=== PATIENT | male | born 1935 | race Two or more races ===

== ENCOUNTER 2016-02-26 11:10 | Inpatient (IN) | payer BC ==
[~2016-02-26] VITALS: Ht 170.2 cm; Wt 88.4 kg
[~2016-02-26 11:10] MED LIST: AMLO-145 PO; ATOR20TA65 PO; CEPH500C PO; CYAN100 PO; ERGO500014 PO; FAMO20TA18 PO; FINA5TAB4 PO; FOLI-49 PO; LISI40TA9 PO; LOSA100T7 PO; RIVA20TA PO; TAMS0.4C2 PO
[2016-02-26 11:16] VITALS: Ht 170.2 cm; Wt 88.4 kg
--- NOTE | 2016-02-26 11:34 | RADRPT ---
PROCEDURE: CT Head without. CLINICAL INDICATION: Code stroke. TECHNIQUE: The study was performed utilizing a multi-slice, multidetector CT scanner. Direct spira l 1 mm axial sections were obtained through the head without the use of intravenous contrast materia l. Coronal and sagittal reformats were obtained. The images were reviewed on a PACS workstation. RADIATION DOSE: CTDIvol: 44.3 mGyDLP: 720.2 mGy-cm COMPARISON: 11/30/2015, MRI brain 12/01/2015 FINDINGS: There is no intracranial hemorrhage, extra-axial fluid collection, mass lesion, midline shift or hyd rocephalus. There is redemonstration of remote prior right MCA distribution infarct, with extensive encephalomalacia involving the right anterior temporal lobe, posterior temporal lobe, right sub ins ular white matter, and right paramedian occipital lobe and right parietal lobe. There is stable adj acent gliosis in the underlying white matter. There is moderate prominence of the cerebral sulci, l ateral and third ventricles. There is baseline of mild to moderate periventricular and subcortical white matter hypodensity. There is moderate arteriosclerotic calcification of the bilateral vertebr al and parasellar internal carotid arteries. The benson-white matter differentiation is preserved. T he basal cisterns are patent. The midline structures are intact. The orbits, calvarium and extracr anial soft tissues are normal in appearance. The visualized paranasal sinuses, mastoid air cells and middle ear cavities are normally aerated. IMPRESSION: 1. No significant interval change compared to 11/30/2015. No acute intracranial abnormality. No i ntracranial hemorrhage, extra-axial fluid collection, mass lesion or hydrocephalous. 2. Stable appearance of sequelae of remote right MCA distribution infarct with encephalomalacia and gliosis in the underlying white matter. 3. Stable moderate peripheral and central cerebral volume loss. 4. Stable mild to moderate periventricular and subcortical white matter hypodensity, likely related to chronic microangiopathic changes. The above findings were discussed with Patient's physician HUMZA LEDEZMA by telephone on 7 11:32:04 AM. RPTAT: DD .Avery Mckeon MD, Date Time Electronically viewed and signed by .Avery Mckeon MD, MD on 02/26/2016 11:33 .S/
[2016-02-26 11:37] LABS: BASOPHIL # 0.1 10^3/ul (0.0-0.1); BASOPHILS % 0.8 % (0.0-2.0); EOSINOPHILS # 0.2 10^3/ul (0.0-0.5); EOSINOPHILS % 3.1 % (0.0-7.0); HEMATOCRIT 33.9 % (42.0-52.0); HEMOGLOBIN 11.1 g/dl (14.0-18.0); LYMPHOCYTES % 13.2 % (15.0-51.0); MEAN CORPUSCULAR HEMOGLOBIN 31.3 pg (29.0-33.0); MEAN CORPUSCULAR HGB CONC 32.8 g/dl (32.0-37.0); MEAN CORPUSCULAR VOLUME 95.4 fl (82.0-101.0); MEAN PLATELET VOLUME 8.6 fl (7.4-10.4); MONOCYTE # 0.4 10^3/ul (0.3-0.9); MONOCYTES % 5.3 % (0.0-11.0); NEUTROPHIL # 5.7 10^3/ul (1.6-7.5); NEUTROPHILS % 77.6 % (39.0-77.0); PLATELET COUNT 234 10^3/UL (140-440); RED BLOOD COUNT 3.55 10^6/ul (4.70-6.10); RED CELL DISTRIBUTION WIDTH 14.1 % (11.5-14.5); UNCORRECTED WBC 7.4 10^3/ul (4.8-10.8); WHITE BLOOD COUNT 7.4 10^3/ul (4.8-10.8)
[2016-02-26 11:42] LABS: CONDITION 1; LH ANALYZER COMMENTS 1; SUSPECT 1
[2016-02-26 11:50] LABS: ALBUMIN 3.3 g/dl (3.3-4.9); INR 4.49; PROTIME 43.5 Sec (12.2-14.2); PT RATIO 3.4
[2016-02-26 11:51] LABS: PARTIAL THROMBOPLASTIN TIME 57.6 Sec (25.0-35.0); POTASSIUM 4.1 mmol/L (3.5-5.1)
[2016-02-26 11:53] LABS: ALBUMIN/GLOBULIN RATIO 1.03; BILIRUBIN,INDIRECT 0.3 mg/dl (0-1.1); BILIRUBIN,TOTAL 0.3 mg/dl (0.2-1.3); CREATININE 1.08 mg/dl (0.61-1.24); TOTAL PROTEIN 6.5 g/dl (6.1-8.1)
[2016-02-26 11:54] LABS: CALCIUM 8.8 mg/dl (8.4-10.2)
[2016-02-26] MEDS ORDERED: APR50 PO (11:58)
[2016-02-26] MEDS ORDERED: DILT120C79 PO (11:58)
[2016-02-26] MEDS ORDERED: CLON-379 PO (11:59)
[2016-02-26] MEDS ORDERED: ZOLP5TAB6 PO (12:00)
[2016-02-26] MEDS ORDERED: LOSA1TAB20 PO (12:00)
[2016-02-26] MEDS ORDERED: HYDR-906 PO (12:01)
--- NOTE | 2016-02-26 12:03 | RADRPT ---
PROCEDURE: Chest Radiograph. CLINICAL INDICATION: Stroke TECHNIQUE: Single frontal chest radiograph. COMPARISON: Chest radiograph 11/30/2015 FINDINGS: The heart remains moderate to markedly enlarged. Atherosclerotic calcifications are present. There is stable mild central vascular congestion. No confluent or lobar infiltrate is seen. No definite pleural effusion is identified. The bones are intact. IMPRESSION: 1. Stable radiographic appearance of chest compared to 11/30/2015 without evidence of acute cardiop ulmonary disease. 2. Stable cardiomegaly, central vascular congestion, and atherosclerotic vascular disease. RPTAT: KK .Jose Elias Mo MD, MD Date Time Electronically viewed and signed by .Jose Elias Mo MD, MD on 02/26/2016 12:03 .B/
[2016-02-26 12:05] LABS: TROPONIN-I 0.027 ng/ml (0.00-0.12)
[2016-02-26 12:39] LABS: CK-MB 1.26 ng/ml (0.0-2.4)
--- NOTE | 2016-02-26 13:32 | ERA ---
ER Documentation Chief Complaint Date/Time DATE: 02/26/16 TIME: 13:22 Chief Complaint BIB RA FOR EVAL OF LEFT SIDED WEAKNESS X 1 DAY. HPI This is an 80-year-old male with a known past medical history of atrial fibrillation that began diltiazem 24 hours ago and has been on xarelto for many years. The patient's utility bill collection clerk is Dr. Capellan. Yesterday evening, the last known normal time of 12 hours prior to arrival, the daughter indicated the patient developed a left-sided facial droop with some slurred speech. This resolved within several minutes and therefore she did not bring the patient to the hospital that time. He had recurrence of this left-sided facial droop just prior to arrival and therefore she phoned 911. The patient denies a headache or changes in vision. He denies any nausea vomiting or abdominal pain. He denies any weakness of his upper or lower extremities. The patient has a remote ischemic cerebral infarct but had no residual weakness from his prior stroke several years ago. ROS All systems reviewed and are negative except as per history of present illness. Medications Home Meds Active Scripts Atorvastatin Calcium (Atorvastatin Calcium) 20 Mg Tablet, 20 MG PO HS for 30 Days, TAB Prov:NEPTALI LOYABIR 12/02/15 Reported Medications Hydrocodone/Acetaminophen ([place] 5-325 Tablet) 1 Each Tablet, 1 EACH PO Q6 Y for PAIN, TAB 02/26/16 Zolpidem Tartrate* (Zolpidem Tartrate*) 5 Mg Tablet, 5 MG PO QHS Y for INSOMNIA , #30 TAB 02/26/16 Losartan-Hydrochlorothiazide (Losartan-HCTZ) 100-25 Mg Tab, 1 TAB PO DAILY, TAB 02/26/16 Clonidine Hcl* (Clonidine Hcl*) 0.1 Mg Tab, 0.1 MG PO Q8 Y for ELEVATED BLOOD PRESSURE, TAB 02/26/16 Hydralazine Hcl* (Hydralazine Hcl*) 50 Mg Tab, 50 MG PO BID, #120 TAB 02/26/16 Diltiazem Hcl* (Diltiazem XT) 120 Mg Capsule.sa, 120 MG PO BID, #30 CAP 02/26/16 Rivaroxaban* (Xarelto*) 20 Mg Tablet, 20 MG PO WITH DINNER, TAB 11/30/15 Tamsulosin Hcl* (Tamsulosin Hcl*) 0.4 Mg Cap.er.24h, 0.4 MG PO DAILY, CAP 11/30/15 Finasteride* (Finasteride*) 5 Mg Tablet, 5 MG PO DAILY, TAB 11/30/15 Discontinued Reported Medications Cephalexin* (Cephalexin*) 500 Mg Capsule, 500 MG PO DAILY, #28 CAP 11/30/15 Folic Acid* (Folic Acid*) 1 Mg Tablet, 1 MG PO DAILY, TAB 11/30/15 Ergocalciferol* (Drisdol* (Vitamin D2)) 50,000 Unit Capsule, 43718 UNIT PO [id number], CAP patient takes med every 2 weeks on Friday11/30/15 Losartan Potassium* (Losartan Potassium*) 100 Mg Tablet, 100 MG PO DAILY, TAB 11/30/15 Lisinopril* (Lisinopril*) 40 Mg Tablet, 40 MG PO DAILY, #30 TAB 11/30/15 Cyanocobalamin* (Vitamin B12*) 100 Mcg Tab, 100 MCG PO DAILY, TAB 11/30/15 Discontinued Scripts Famotidine* (Famotidine*) 20 Mg Tablet, 20 MG PO BID for 30 Days, TAB Prov:TAWANNA LOYA 12/02/15 Amlodipine Besylate* (Amlodipine Besylate*) 5 Mg Tablet, 5 MG PO BID for 30 Days , TAB Prov:TAWANNA LOYA 12/02/15 Allergies Allergies: Coded Allergies: No Known Allergy (Unverified , 02/26/16) PMhx/Soc Medical and Surgical Hx: pt denies Surgical Hx History of Surgery: No Anesthesia Reaction: No Hx Neurological Disorder: Yes (prior stroke) Hx Respiratory Disorders: No Hx Cardiac Disorders: Yes (htn, hyperlipidemia ) Hx Psychiatric Problems: No Hx Miscellaneous Medical Probl: Yes Hx Alcohol Use: No Hx Substance Use: No Hx Tobacco Use: No Smoking Status: Unknown if ever smoked Physical Exam Vitals Vital Signs Date Time Temp Pulse Resp B/P Pulse Ox O2 Delivery O2 Flow Rate FiO2 02/26/16 12:30 40 16 128/55 96 Room Air 02/26/16 11:16 97.1 53 18 151/66 95 Physical Exam Constitutional:Well-developed. Well-nourished. HEENT:Normocephalic. Atraumatic.Pupils were equal round reactive to light. Moist mucous membranes.No tonsillar exudates. Neck: No nuchal rigidity. No lymphadenopathy. No posterior cervical spine tenderness or step-offs. Respiratory: Not using accessory muscles of respiration.Lungs were clear to auscultation bilaterally. No rhonchi. No rales. No wheezing. Cardiovascular: Regular rate regular rhythm.No murmurs. No rubs were appreciated.S1, S2 normal. Distal pulses are palpable 2+ bilaterally. GI: Abdomen was soft. Nontender. Non Distended. No pulsatile abdominal masses or bruits. No rebound. No guarding. Bowel sounds were present and normal. Muscle skeletal: Full range of motion of both the upper and lower extremities bilaterally.Normal muscle tone.No assymetrical calf tenderness or swelling. Skin: No petechia, no purpura. No lesions on the palms or the soles of the feet. No maculopapular rash. NEURO: Patient was alert, awake, orientated x3. Left sided facial droop. Gait observed and normal with no ataxia.Speech had regular rate and rhythm. No focal neurological deficits. Result Diagram: 02/26/16 1120 02/26/16 1120 Results 24 hrs Laboratory Tests Test 02/26/16 11:20 02/26/16 11:37 Activated Partial Thromboplast Time 57.6Sec Alanine Aminotransferase (ALT/SGPT) 49IU/L Albumin 3.3g/dl Albumin/Globulin Ratio 1.03 Alkaline Phosphatase 63IU/L Anion Gap 14 Aspartate Amino Transf (AST/SGOT) 24IU/L Basophils # 0.110^3/ul Basophils % 0.8% Blood Urea Nitrogen 39mg/dl Calcium Level 8.8mg/dl Carbon Dioxide Level 30mmol/L Chloride Level 102mmol/L Creatine Kinase 23IU/L Creatine Kinase Index 5.5 Creatinine 1.08mg/dl Creatinine Kinase MB (Mass) 1.26ng/ml Direct Bilirubin 0.00mg/dl Eosinophils # 0.210^3/ul Eosinophils % 3.1% Globulin 3.20g/dl Glucose Level 230mg/dl Hematocrit 33.9% Hemoglobin 11.1g/dl Hemoglobin A1c 7.5% INR International Normalized Ratio 4.49 Indirect Bilirubin 0.3mg/dl Lymphocytes # 1.010^3/ul Lymphocytes % 13.2% Mean Corpuscular Hemoglobin 31.3pg Mean Corpuscular Hemoglobin Concent 32.8g/dl Mean Corpuscular Volume 95.4fl Mean Platelet Volume 8.6fl Monocytes # 0.410^3/ul Monocytes % 5.3% Neutrophils # 5.710^3/ul Neutrophils % 77.6% Nucleated Red Blood Cells # 0.010^3/ul Nucleated Red Blood Cells % 0.0/100WBC Platelet Count 98311^3/UL Potassium Level 4.1mmol/L Prothrombin Time 43.5Sec Prothrombin Time Ratio 3.4 Red Blood Count 3.5510^6/ul Red Cell Distribution Width 14.1% Sodium Level 142mmol/L Total Bilirubin 0.3mg/dl Total Protein 6.5g/dl Troponin I 0.027ng/ml White Blood Count 7.410^3/ul Bedside Glucose 107mg/dL Current Medications Medications (Trade) Dose Ordered Sig/Angel Route PRN Reason Start Time Stop Time Status Last Admin Dose Admin Ondansetron HCl (Zofran Inj) 4 mg ER BRIDGE PRN IV NAUSEA AND/OR VOMITING 02/26/16 14:30 02/27/16 14:29 Acetaminophen (Tylenol Tab) 650 mg ER BRIDGE PRN PO MILD PAIN/FEVER 02/26/16 14:30 02/27/16 14:29 Procedures/MDM The patient presented to the emergency department with strokelike symptoms. A code stroke was immediately called however after my initial examination the patient's facial droop had completely resolved. Therefore the patient was not a TPA candidate. The patient however was immediately placed on patient monitor , continuous pulse oximetry and IV access was established by nursing staff. 12 Lead EKG tracing ordered and reviewed by myself showed: Junctional bradycardia 53 bpm and no arrhythmia. P wave is not appreciated. QRS duration normal. No ST segment elevation No ST segment depression. No changes consistent with acute ischemia. I obtained a 1 view chest radiograph which showed no infiltrates, no PMX and no pleural effusions. CT scan of the head or and reviewed by myself indicate the followin. No significant interval change compared to 11/30/2015. No acute intracranial abnormality. No intracranial hemorrhage, extra-axial fluid collection, mass lesion or hydrocephalous. 2. Stable appearance of sequelae of remote right MCA distribution infarct with encephalomalacia and gliosis in the underlying white matter. 3. Stable moderate peripheral and central cerebral volume loss. 4. Stable mild to moderate periventricular and subcortical white matter hypodensity, likely related to chronic microangiopathic changes. At this time the patient received aspirin p.o. I had spoken with Dr. Tolentino who had sent the patient in for further evaluation after the daughter had phoned their office and explain the symptoms. The patient is currently on Xarelto and I informed Dr. Tolentino that the INR had been elevated and he had stated there are certain cases of his patients where he has seen the elevated INR from the Xarelto. The INR will be repeated and monitored closely. There is no active bleeding at this time. Dr. Tolentino also indicated that Dr. Dey will see the patient from a cardiology perspective upon admission and I will inform Dr. Dey but the patient is being admitted to Dr. Kidd the telemetry's tree service in serious condition with an anticipated stay of greater than 2 midnights. Departure Diagnosis: Primary Impression: TIA (transient ischemic attack) Qualified Code: G45.8 - Other specified transient cerebral ischemias Additional Impression: Coagulopathy Condition: Serious HUMZABRISA Feb 26, 2016 13:32
[2016-02-26] MEDS ORDERED: ONDANSETRON 4 MG INJ IV PRN (14:30)
[2016-02-26] MEDS ORDERED: ACETAMINOPHEN 325 MG TAB PO PRN (14:30)
--- NOTE | 2016-02-26 15:47 | RADRPT ---
PROCEDURE: MRI Brain without contrast. CLINICAL INDICATION: Left facial droop TECHNIQUE: Multiplanar MRI of the brain without contrast was performed on a 3.0 T scanner with the following sequences obtained: T1-weighted, T2-weighted/FLAIR, diffusion weighted (with ADC map), GR E. COMPARISON: CT brain 02/26/2016, MRI brain 12/01/2015 FINDINGS: There are new small - tiny areas of restricted diffusion in the frontal - parietal regions compatibl e with acute infarcts at the posterior superior margin of the middle cerebral artery territory, with underlying chronic infarcts and adjacent gliosis primarily in the middle cerebral artery territory redemonstrated in the right temporal, parietal, frontal, occipital, posterior insular - subinsular r egions, adjacent basal ganglia/posterior limb of internal capsule and byrne radiata. Also redemons trated are chronic lacunar infarcts in the bilateral thalami and a tiny chronic infarct in the right cerebellar hemisphere. Again noted is a small right cerebral peduncle, suggesting wallerian degener ation. No intracranial hemorrhage - blood degradation products are identified. No extra-axial fluid collec tion is seen. There is no mass effect. No midline shift is identified. The ventricles and sulci are moderate enlarged, compatible with volume loss. Additional relatively mild areas of increased T2 / FLAIR signal intensity are present in the periven tricular and deep white matter, nonspecific but likely related to chronic small vessel ischemic paige ges. Flow voids are identified in the proximal intracranial arteries and dural sinuses suggesting patency . The mastoid air cells and paranasal sinuses are grossly clear. IMPRESSION: 1. Small - tiny acute right frontoparietal, middle cerebral artery territory infarcts. 2. Chronic right middle cerebral artery territory infarcts, chronic bilateral thalamic lacunar infa rcts, and tiny chronic right cerebellar infarct. 3. Moderate generalized volume loss, with mild chronic small vessel ischemic changes. Results called to Dr. Gaytan at 03:40 p.m., 02/26/2016. RPTAT: VV .Eyad Arango MD, MD Date Time Electronically viewed and signed by .Eyad Arango MD, on 02/26/2016 15:46 .O/
--- NOTE | 2016-02-26 18:38 | RADRPT ---
PROCEDURE: US DVT. CLINICAL INDICATION: Bilateral lower extremity pain and swelling. TECHNIQUE: Multiple longitudinal and transverse images of the bilateral lower extremity veins were obtained with benson scale and color Doppler imaging. 2D grayscale measurements with compression, co franco Doppler flow, and augmentation was performed. The calf veins were interrogated as well. COMPARISON: No prior studies are available for comparison. FINDINGS: The bilateral common femoral, superficial femoral and popliteal veins are normally compressible thro ughout. Color flow demonstrates normal filling of the vessel. Normal waveforms are visualized and there is normal response to augmentation. The calf veins are visualized and are equally unremarkabl e. IMPRESSION: 1. No evidence of a deep vein thrombosis involving either lower extremity. RPTAT: HH .Bertha Abdalla MD, Date Time Electronically viewed and signed by .Bertha Abdalla MD, MD on 02/26/2016 18:38 .N/
[2016-02-26 20:00] VITALS: TEMP 98.3
[2016-02-26] MEDS: hydrALAzine 20 MG INJ IV PRN (22:07)
[2016-02-26 23:36] VITALS: PULSE 70
--- NOTE | 2016-02-26 23:52 | CONS ---
DATE OF ADMISSION: 02/26/2016 DATE OF CONSULTATION: 02/26/2016 REASON FOR CONSULTATION: Atrial fibrillation, abnormal electrocardiogram. REQUESTING PHYSICIAN: Luan Scherer MD HISTORY OF PRESENT ILLNESS: Mr. Cabrera is an 80-year-old male with history of hypertension, BPH, atrial fibrillation on Xarelto and diltiazem, coronary artery disease, prior CVA, dementia who, on t he day prior to admit by his daughter, had noted to have any facial droop. The patient subsequently had resolution of the droop and then regained a droop again today and subsequently presented to the emergency department here at [facility]. Upon arrival, temperature 97.1, blood p ressure 151/66, pulse 53, respirations 18, saturating 95%. The patient's labs revealed a white bloo d cell count of 7.4, hemoglobin 11.1, platelet count of 234. Sodium 142, potassium 4.1, creatinine 1.0, BUN 39. Hemoglobin A1c of 7.5. AST 24, ALT 29. Troponin negative. INR of 4.49. The patient underwent a chest x-ray revealing stable cardiomegaly, central vascular congestion. A head CT reve aling no significant interval change compared to 11/30/2015. No intracranial hemorrhage, no acute i ntracranial abnormality. Remote right MCA distribution infarct with associated encephalomalacia. A followup brain MRI now revealed small tiny acute right frontoparietal middle cerebral artery territ ory infarcts, chronic right middle cerebral artery territory infarcts, chronic bilateral thalamic la cunar infarcts, and tiny chronic right cerebellar infarct, moderate generalized volume loss, and mil d chronic small vessel ischemic change. The patient's electrocardiogram revealed atrial fibrillatio n, rate of 53 with borderline left axis deviation with an incomplete right bundle block, septal Q's. The patient subsequently, at this time, remains in the ER awaiting neurologic evaluation. The pat ient, while in the ER, has been noted to have blood pressures in the 150s and intermittent episodes of atrial fibrillation to the 40s. PAST MEDICAL HISTORY: As above in HPI with the patient having a similar presentation in November. At that time, he underwent a 2D echo that had revealed EF of 50% with small to moderate pericard ial effusion, moderate tricuspid regurgitation, mild to moderate mitral regurgitation, moderate aort ic regurgitation. MEDICATIONS CURRENTLY IN HOSPITAL: 1. Zofran. 2. Tylenol. MEDICATIONS PRIOR TO ADMIT: 1. Flomax 0.4 mg daily. 2. Xarelto 20 mg daily. 3. Atorvastatin 20 mg at bedtime. 4. Clonidine p.r.n. 5. Diltiazem 120 mg p.o. b.i.d. 6. Hydralazine 50 mg p.o. b.i.d. 7. Losartan 100/25 one tab p.o. daily. 8. [place] p.r.n. 9. Ambien p.r.n. 10. Proscar 5 mg daily. ALLERGIES: NO KNOWN DRUG ALLERGIES. SOCIAL HISTORY: No current tobacco, ETOH, or illicit drug use. FAMILY HISTORY: No history of sudden cardiac or early CAD. REVIEW OF SYSTEMS: As above in HPI. CONSTITUTIONAL: No fevers, chills. PULMONARY: No current shortness of breath. CARDIOVASCULAR: Atrial fibrillation. No chest pain. Congestive heart failure by chest x-ray. GASTROINTESTINAL: No vomiting. GENITOURINARY: No hematuria. MUSCULOSKELETAL: Degenerative joint disease. PSYCHIATRIC: No documented psychiatric history. NEUROLOGIC: Acute CVA. PHYSICAL EXAMINATION: VITAL SIGNS: Temperature of 97.1, blood pressure most recently 155/82, pulse in the 50s, saturating 95% on room air. GENERAL: The patient is alert, awake, in no acute distress. NECK: JVP approximately 8 to 9 cm water. CHEST: Fair air movement throughout. HEART: Irregularly irregular, bradycardic, I/ systolic murmur. ABDOMEN: Positive bowel sounds, soft. EXTREMITIES: 1+ edema, right mildly greater than left, 1+ pulses bilaterally at the dorsalis pedis. LABORATORIES: As above in HPI with the sodium from today 142, creatinine 1.0, BUN 39. Hemoglobin A 1c of 7.5. Negative troponin. White blood cell count of 7.4, hemoglobin 11.1, platelet count of 23 4. IMAGING STUDIES: As above in HPI. No further imaging studies for my review at this time. ELECTROCARDIOGRAM: As above in HPI. No further electrocardiograms for my review at this time. IMPRESSION: 1. Atrial fibrillation with slow ventricular response, on diltiazem. 2. Abnormal electrocardiogram, assess for acute coronary syndrome. 3. Congestive heart failure with chest x-ray would be diastolic, acute on chronic, by most recent e cho, ejection fraction of 50%, November 2015. 4. Hypertension. 5. Acute cerebrovascular accident by MRI, frontoparietal. 6. Dementia. 7. History of coronary artery disease. 8. Anemia. 9. Coagulopathy with supratherapeutic INR. RECOMMENDATIONS: 1. At this time, would admit patient to telemetry monitoring to follow rhythm and rate control clos katharina. 2. Would hold the patient's diltiazem at this time, as patient is bradycardic. Will ____ neurology as to whether to reinitiate the patient's other baseline antihypertensives at this time or to allow permissive hypertension in the setting of acute cerebrovascular accident. 3. Would hold the patient's Xarelto and follow INR closely. 4. Complete a rule out for myocardial infarction to ensure the patient's constellation of symptoms have not resulted in an acute myocardial infarction, given EKG abnormalities. 5. Check a fasting lipid panel for general risk stratification. 6. Pending neurological consultation. 7. Check a TSH to be sure that subclinical hypothyroidism is not contributing to the patient's curr ent bradyarrhythmias. 8. Will consider a transthoracic echo with bubble study as necessary, per neurology. Thank you for allowing me to take part in the care of this patient. I will continue to follow along very closely with you with further recommendations to be made as the patient progresses through his inpatient hospital clinical course. Dictated By: ROJELIO MILIAN/TRACI Conf#: [id number] DID#: [id number] CC: FAMILIA SLATER MD; CLEO ABDULLAHI NP; LUAN SCHERER MD;*End*
[2016-02-27] VITALS (13 sets, daily range): BP systolic 148–185; BP diastolic 72–98; PULSE 70–115; RESP 19–20
--- NOTE | 2016-02-27 00:11 | HP ---
DATE OF ADMISSION: 02/26/2016 CHIEF COMPLAINT: Left-sided weakness and garbled speech for 1 day. HISTORY OF PRESENT ILLNESS: The patient is an 80-year-old French gentleman with past medical hist ory positive for atrial fibrillation, hypertension, history of stroke, BPH, and possible congestive heart failure. According to the patient's daughter, the patient developed left-sided facial droop w ith slurred speech 12 hours prior to arrival to the emergency room. Those symptoms resolved and the patient was not brought to the emergency room at that time. Then, he had a recurrence of left-side d facial droop and patient was brought to the hospital by paramedics. The patient denies any fever, chills. Denies nausea, vomiting, and diarrhea. Denies chest pain, denies shortness of breath. In the emergency room, patient underwent a CT scan and subsequent brain MRI with impression of small t iny acute right frontoparietal middle cerebral artery territory infarcts and 2 chronic right middle cerebral artery territory infarcts, chronic bilateral thalamic lacunar infarcts and tiny chronic rig ht cerebellar infarcts, moderate generalized volume loss with mild chronic small vessel ischemic kate nges per MRI of the brain. The patient also underwent a chest x-ray without evidence of acute cardi opulmonary disease, stable cardiomegaly, central vascular congestion, and atherosclerotic vascular d isease. The patient will be admitted for further evaluation and management. The patient also noted to have INR elevated to 4.49, PT is 43.5, and aPTT is 57.6. The patient will be admitted for further evaluation and management to telemetry floor. PAST MEDICAL HISTORY: Positive for hypertension, atrial fibrillation, BPH, coronary artery disease, and history of stroke. Cerebrovascular accident in 2008. PAST SURGICAL HISTORY: The patient had prostate surgery in [facility] many years ago, details are not available. FAMILY HISTORY: Noncontributory. SOCIAL HISTORY: The patient lives at home with his family. The patient denies any tobacco use, den ies any illicit drug use. The patient drinks alcohol occasionally. ALLERGIES: NO KNOWN ALLERGIES. MEDICATIONS ON ADMISSION: The patient takes: 1. Flomax. 2. Finasteride. 3. ____ 4. Hydrocodone. 5. Atorvastatin. 6. Xarelto. 7. Hydralazine. 8. Cozaar. 9. Hydrochlorothiazide. 10. Cardizem. 11. Clonidine. REVIEW OF SYSTEMS: A 12-point review of systems is negative unless what mentioned in the HPI. PHYSICAL ASSESSMENT: GENERAL: Well-developed, well-nourished male in no acute distress. VITAL SIGNS: Temperature is 97.1, pulse is 44, blood pressure is 155/82, respiratory rate 16, oxyge n saturation 95% on room air. HEENT: Head is atraumatic, normocephalic. Pupils equal, round, reactive to light and accommodation . Oral mucosa is pink and moist. NECK: Supple. No cervical lymphadenopathy, no thyromegaly. CHEST: Lungs clear bilaterally. There are no rhonchi, wheezes, or rales chills noted. CARDIOVASCULAR: Irregularly irregular rhythm. Normal S2, variable S1. No murmurs, gallops, clicks , rubs noted. ABDOMEN: Round, soft, nondistended, nontender. Bowel sounds present. SKIN: There is no rash, petechiae noted. NEUROLOGIC: The patient is awake, alert, and oriented x3. The patient has a mild left-sided facial droop. Motor strength 5/5 in all extremities. LABORATORY DATA: On admission, CBC: White blood cells 7.4, hemoglobin 11.1, hematocrit 33.9, plate lets 234. Chemistry: Sodium is 142, potassium 4.1, chloride 102, carbon dioxide 30, anion gap 14, BUN is 39, creatinine 1.08, glucose 230. Troponin 0.027. ASSESSMENT AND PLAN: 1. 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 Dr. Don is asked to see patient in neurology consultation. We will obtain a speech, swallow evaluation. 2. Atrial fibrillation with bradycardia. Will ask Dr. Tolentino to see patient in cardiology consulta tion. Continue to monitor rate and rhythm on telemetry floor. 3. Coagulopathy. The patient is on Xarelto at home. 4. Hypertension. Continue to monitor blood pressure. 5. Benign prostatic hypertrophy. We will continue Flomax and finasteride. 6. Diastolic congestive heart failure with preserved ejection fraction per echo in November of last year. Continue to monitor intake and output. Further recommendations based on clinical course. Plan of care discussed with Dr. Scherer. Dictated By: CLEO ABDULLAHI RN ENTEROSTOMAL for LUAN SCHERER MD SR/NTS Conf#: [id number] DID#: [id number] CC: FAMILIA SLATER MD;*End*
[2016-02-27] MEDS: AMLODIPINE 2.5 MG TAB PO SCH ×3 (00:57→20:43)
[2016-02-27] MEDS: hydrALAzine 20 MG INJ IV PRN ×2 (04:42→23:49)
--- NOTE | 2016-02-27 07:28 | CONS ---
DATE OF ADMISSION: 02/26/2016 DATE OF CONSULTATION: 02/26/2016 NEUROLOGICAL CONSULTATION Thank you very much for your kind referral for evaluation of stroke. HISTORY OF PRESENT ILLNESS: The patient is an 80-year-old gentleman with known history of atrial fibrillation, on Xarelto, who in the last couple days had transient facial droop on the left side with slurred speech for 10 to 15 minutes each time, last time this morning. In the hospital, the patient already got his MRI which shows a small right frontoparietal area of restricted diffusion in the middle cerebral artery territory, consistent with acute CVA. Also, multiple chronic bilateral infarcts seen. CURRENT MEDICATIONS: Presently at home he is on: 1. Flomax. 2. Xarelto 3. Atorvastatin 20. 4. Clonidine. 5. Diltiazem. 6. Hydralazine. 7. Losartan with hydrochlorothiazide. 8. Zolpidem. 9. Finasteride. ALLERGIES: HE IS NOT ALLERGIC TO ANY MEDICINES. SOCIAL HISTORY: No alcohol, tobacco, drug use. FAMILY HISTORY: Noncontributory. LABORATORIES: Show hemoglobin 11, hematocrit 34, normal WBCs and platelets. INR 4.5. Chemistry: BUN 39, creatinine 1.08, glucose 230, hemoglobin A1c 7.5. Normal comprehensive metabolic panel otherwise as well as TSH. PHYSICAL EXAMINATION: VITAL SIGNS: Temperature 98.3, 48 pulse, 16 respirations, 164/73 blood pressure. GENERAL: Not in acute distress, lying in bed. HEENT: Normocephalic, atraumatic head. NECK: No carotid bruits. No thyromegaly. LUNGS: Clear to auscultation bilaterally. CARDIAC: Normal cardiac rhythm and sounds. ABDOMEN: Soft, nontender. EXTREMITIES: No cyanosis, clubbing, or edema. NEUROLOGIC: He is awake, alert, and oriented x3 with fluent speech. The daughter is at bedside interpreting. Normal visual espinal to visual threat. Pupils round, reactive to light from 3 to 2 mm bilaterally. Extraocular movements intact without nystagmus. Symmetrical face. Preserved facial strength and sensation. Tongue is in midline. Palate elevates symmetrically. Motor strength examination preserved in all extremities. Normal bulk, tone, and strength. Sensory examination grossly intact to light touch and pain. Deep tendon reflexes 2+ upper extremities and knees, absent ankle jerks. Equivocal response to plantar stimulation bilaterally Coordination preserved on [id number] testing. No dysmetria or tremor. Gait was not assessed. According to the daughter, the patient has no problem ambulating. IMPRESSION: Acute ischemic stroke in a patient with history of atrial fibrillation, currently on anticoagulation. His INR 4.5. Frequently, if patients on anticoagulation have acute stroke, baby aspirin being added, but given supratherapeutic INR, I will not do it at the present time. It is okay to elevated blood pressure in the first few days after acute stroke as high as 220/120, but then obtain gradual control. Keep the patient euglycemic. I will increase his Lipitor. In November, his cholesterol was 132 and LDL was 86, so I will make his Lipitor 40 mg. Continue current treatment otherwise. Thank you very much for this interesting consultation. The patient had carotid ultrasounds 3 months ago which shows less than 50% stenosis bilaterally in the internal carotid arteries. Will repeat to assure stability. Echocardiogram is also pending. Thank you very much for this interesting consultation. Dictated By: SHANICE BARRERA/TRACI Conf#: [id number] DID#: [id number] MTDD
[2016-02-27 08:14] LABS: INR 1.99; PROTIME 22.8 Sec (12.2-14.2); PT RATIO 1.8
[2016-02-27 08:20] LABS: CHOL/HDL RATIO 3.1 RATIO
[2016-02-27 08:32] LABS: BASOPHILS % 0.6 % (0.0-2.0); EOSINOPHILS # 0.2 10^3/ul (0.0-0.5); EOSINOPHILS % 3.4 % (0.0-7.0); HEMATOCRIT 35.1 % (42.0-52.0); HEMOGLOBIN 11.5 g/dl (14.0-18.0); LYMPHOCYTES # 1.3 10^3/ul (0.8-2.9); MEAN CORPUSCULAR HEMOGLOBIN 31.5 pg (29.0-33.0); MEAN CORPUSCULAR HGB CONC 32.9 g/dl (32.0-37.0); MEAN CORPUSCULAR VOLUME 95.8 fl (82.0-101.0); MEAN PLATELET VOLUME 8.6 fl (7.4-10.4); MONOCYTE # 0.6 10^3/ul (0.3-0.9); MONOCYTES % 9.2 % (0.0-11.0); NEUTROPHIL # 4.7 10^3/ul (1.6-7.5); NEUTROPHILS % 67.8 % (39.0-77.0); PLATELET COUNT 226 10^3/UL (140-440); RED BLOOD COUNT 3.66 10^6/ul (4.70-6.10); RED CELL DISTRIBUTION WIDTH 14.3 % (11.5-14.5); UNCORRECTED WBC 6.9 10^3/ul (4.8-10.8); WHITE BLOOD COUNT 6.9 10^3/ul (4.8-10.8)
[2016-02-27 08:44] LABS: CONDITION 1
[2016-02-27 09:23] LABS: POTASSIUM 4.1 mmol/L (3.5-5.1)
[2016-02-27 09:25] LABS: CREATININE 0.96 mg/dl (0.61-1.24)
[2016-02-27 09:27] LABS: CALCIUM 9.3 mg/dl (8.4-10.2)
--- NOTE | 2016-02-27 09:31 | RADRPT ---
PROCEDURE: US Carotids. CLINICAL INDICATION: bruit , cva TECHNIQUE: Multiple sonographic of the carotid bifurcation region and vertebral arteries were obta ined utilizing benson scale, duplex and color-flow imaging. The images were reviewed on a PACS worksta tion. COMPARISON: 12/02/15 FINDINGS: Evaluation of the right carotid bifurcation region reveals mild calcific atherosclerotic disease. Evaluation of the left carotid bifurcation region reveals mild calcific atherosclerotic disease. There is antegrade flow within the vertebral arteries bilaterally. RIGHT CAROTID MEASUREMENTS: Common Carotid Kyrlbm90.3 (cm/sec) Internal Carotid Artery - zjdvwevt87.6 (cm/sec) Internal Carotid Artery - mid49.1 (cm/sec) Internal Carotid Artery - .3 (cm/sec) Internal Carotid/Common Carotid1.07 LEFT CAROTID MEASUREMENTS: Common Carotid Dsqcab96.6 (cm/sec) Internal Carotid Artery - fodbpjcw60.7 (cm/sec) Internal Carotid Artery - mid35.1 (cm/sec) Internal Carotid Artery - ygdggo02.3 (cm/sec) Internal Carotid/Common Carotid0.93 RPTAT: AA IMPRESSION: No evidence for hemodynamically significant stenosis in the bilateral internal carotid arteries - va lidated velocity measurements with angiographic measurements, velocity criteria are extrapolated fro m diameter data as defined by the Society of Radiologists in Ultrasound Consensus Conference Radiolo gy 2003; 229;340-346. This study does indirectly reference the measurement of the distal ICA diamet er as the denominator for stenosis measurement. Normal antegrade flow in the vertebral arteries bilaterally. .Kervin Dillard MD, Date Time Electronically viewed and signed by .Kervin Dillard MD, on 02/27/2016 09:31 .S/
--- NOTE | 2016-02-27 11:30 | CONS ---
Date/Time of Note Date/Time of Note DATE: 02/27/16 TIME: 11:28 Assessment/Plan Assessment/Plan Additional Assessment/Plan 1. Atrial fibrillation with slow ventricular response, on diltiazem- rate well controlled, con't to follow. 2. Abnormal electrocardiogram, assess for acute coronary syndrome - a. fib - rate controlled. 3. Congestive heart failure with chest x-ray would be diastolic, acute on chronic, by most recent echo, ejection fraction of 50%, November 2015. Euvolemic by exam now. 4. Hypertension- well Rx - con't med rx 5. Acute cerebrovascular accident by MRI, frontoparietal- neuro follows. 6. Dementia- unchanged - more alert today 7. History of coronary artery disease. 8. Anemia. 9. Coagulopathy with serotherapeutic INR ? with NOAK? will monitor. Consultation Date/Type/Reason Admit Date/Time Feb 26, 2016 at 14:16 Initial Consult Date 24 HR Interval Summary Free Text/Dictation MRI + for small CVA - neuro follows - a. fib rate controlled ROS: No fever, no chills, no nausea, no vomiting, no diarrhea/constipation No recent weight changes No chest pain, no PND, no orthopnea No dizziness, blurred vision No thirst, no heat or cold intolerance (per family) drop better now Exam/Review of Systems Vital Signs Vitals Vital Signs Date Time Temp Pulse Resp B/P Pulse Ox O2 Delivery O2 Flow Rate FiO2 02/27/16 11:24 97.4 80 20 148/72 96 02/27/16 00:46 Room Air Intake and Output 02/26/16 02/26/16 02/27/16 15:00 23:00 07:00 Intake Total 0 ml Balance 0 ml Exam General: WN/WD/NAD, AOx 1-2 HEENT: Unicetric/atraumatic/EOMI (does not follow commands) NECK: JVD elevated, no thyromegaly Lymph: no lymphadenopathy HEART: IRregular with no S3, II/ systolic murmur at apex LUNGS: Coarse sounds ABD: soft, NT, ND, +BS : Intact Neuro: non focal SKIN: chronic changes EXT: trace edema Results Result Diagram: 02/27/16 0716 02/27/16 0716 Results 24 hrs Laboratory Tests Test 02/26/16 11:37 02/26/16 18:00 02/27/16 00:20 02/27/16 07:16 Bedside Glucose 107 Thyroid Stimulating Hormone (TSH) 1.750 Troponin I 0.032 0.037 Anion Gap 15 Basophils # 0.0 Basophils % 0.6 Blood Urea Nitrogen 28 #H Calcium Level 9.3 Carbon Dioxide Level 30 Chloride Level 102 Cholesterol Level 121 Cholesterol/HDL Ratio 3.1 Creatinine 0.96 Eosinophils # 0.2 Eosinophils % 3.4 Glucose Level 137 # HDL Cholesterol 39 Hematocrit 35.1 L Hemoglobin 11.5 L INR International Normalized Ratio 1.99 LDL Cholesterol, Calculated 64 Lymphocytes # 1.3 Lymphocytes % 19.0 Mean Corpuscular Hemoglobin 31.5 Mean Corpuscular Hemoglobin Concent 32.9 Mean Corpuscular Volume 95.8 Mean Platelet Volume 8.6 Monocytes # 0.6 Monocytes % 9.2 Neutrophils # 4.7 Neutrophils % 67.8 Nucleated Red Blood Cells # 0.0 Nucleated Red Blood Cells % 0.0 Platelet Count 226 Potassium Level 4.1 Prothrombin Time 22.8 #H Prothrombin Time Ratio 1.8 Red Blood Count 3.66 L Red Cell Distribution Width 14.3 Sodium Level 143 Triglycerides Level 92 White Blood Count 6.9 Medications Medications Current Medications Hydralazine HCl (Apresoline) 10 mg Q4H PRN IV SBP>180 Last administered on 02/26 04:42; Admin Dose 10 MG; Start 02/26/16 at 18:00 Atorvastatin Calcium (Lipitor) 40 mg QHS PO ; Start 02/27/16 at 21:00 Amlodipine Besylate (Norvasc) 2.5 mg BID PO Last administered on 02/27/16 08: 45; Admin Dose 2.5 MG; Start 02/27/16 at 01:00 DEON SEGOVIA MD Feb 27, 2016 11:30
--- NOTE | 2016-02-27 11:52 | RADRPT ---
Echocardiogram Report Patient Name: JAYDEN JAMES Gender: Male Date: 1935 Study Date: 27-Feb-2016 [employer]ine [employer] In[employer] Trainer: Aron Cr [facility] Location: [address] Ref. Physician: ROJELIO VILLAFANA Quality: Good Procedures: Transthoracic echocardiogram with complete 2D, M-Mode, and doppler examination. Indications: Cerebrovascular Accident. 2D/M Mode Doppler Measurement Value Normal Ranges Measurement Value Normal Ranges LVIDd 2D 5.8 3.5 - 5.6 cm AV Peak Terrence 1.5 m/sec LVIDs 2D 4.1 2.1 - 4.1 cm AV Peak PG 9.1 mmHg LVPWd 2D 1.0 0.6 - 1.1 cm LVOT Peak Terrence 0.7 m/sec IVSd 2D 0.9 0.6 - 1.1 cm LVOT Peak PG 1.9 mmHg AoR Diam 2D 3.1 2.0 - 3.7 cm TR Peak Terrence 2.9 m/sec EDV 2D 169.7 cm3 TR Peak PG 33.7 mmHg ESV 2D 66.6 cm3 RVSP 37.0 mmHg LA Dimen 2D 5.7 2.3 - 4.0 cm Findings Left Ventricle: Normal left ventricular systolic function. Normal left ventricular wall thickness. Mild enlargement of left ventricle cavity. Ejection fraction is visually estimated at 60 %. Right Ventricle: Normal right ventricular size. Normal right ventricular systolic function. Left Atrium: There is severe enlargement of left atrium. Right Atrium: There is severe enlargement of right atrium. Atrial Septum: Left to right shunt by color Doppler consistent with PFO vs. ASD. Mitral Valve: Mitral valve leaflets appear mildly thickened. Moderate mitral valve regurgitation. Aortic Valve: Aortic cusps appear mildly calcified. Trace aortic valve regurgitation. Tricuspid Valve: Estimated peak PA systolic pressure 37 mmHg. There is mild tricuspid regurgitation. Pericardium: Moderate pericardial effusion. Aorta: Normal aortic root. IVC: Normal size and normal respiratory collapse consistent with normal right atrial pressure. Conclusions 1.Normal left ventricular systolic function. Normal left ventricular wall thickness. Mild enlargement of left ventricle cavity. Ejection fraction is visually estimated at 60 %. 2.Aortic cusps appear mildly calcified. Trace aortic valve regurgitation. 3.Mitral valve leaflets appear mildly thickened. Moderate mitral valve regurgitation. Electronically Signed By: Hector Tolentino 27-Feb-2016 11:51:56 -0800 Patient Name: JAYDEN JAMES Study Date: 27-Feb-[id number]
--- NOTE | 2016-02-27 14:21 | RADRPT ---
Vent Rate: 83 bpm RR Interval: 0 msec LA Interval: 0 msec QRS Duration: 100 msec QT Interval: 368 msec QTC Interval: 432 msec P-R-T [place]: 0 - 8 - 62 degrees Atrial fibrillation with premature ventricular or aberrantly conducted complexes Septal infarct , age undetermined Abnormal ECG Electronically Signed By: Crow Paulson [id number]
--- NOTE | 2016-02-27 15:43 | CONS ---
Date/Time of Note Date/Time of Note DATE: 02/27/16 TIME: 15:42 Consultation Date/Type/Reason Admit Date/Time Feb 26, 2016 at 14:16 Social History Smoking Status: Never smoker Exam/Review of Systems Vital Signs Vitals Vital Signs Date Time Temp Pulse Resp B/P Pulse Ox O2 Delivery O2 Flow Rate FiO2 02/27/16 15:11 97.0 76 20 185/95 97 02/27/16 00:46 Room Air Intake and Output 02/26/16 02/26/16 02/27/16 15:00 23:00 07:00 Intake Total 0 ml Balance 0 ml Results Result Diagram: 02/27/16 0716 02/27/16 0716 Results 24 hrs Laboratory Tests Test 02/26/16 18:00 02/27/16 00:20 02/27/16 07:16 Thyroid Stimulating Hormone (TSH) 1.750 Troponin I 0.032 0.037 Anion Gap 15 Basophils # 0.0 Basophils % 0.6 Blood Urea Nitrogen 28 #H Calcium Level 9.3 Carbon Dioxide Level 30 Chloride Level 102 Cholesterol Level 121 Cholesterol/HDL Ratio 3.1 Creatinine 0.96 Eosinophils # 0.2 Eosinophils % 3.4 Glucose Level 137 # HDL Cholesterol 39 Hematocrit 35.1 L Hemoglobin 11.5 L INR International Normalized Ratio 1.99 LDL Cholesterol, Calculated 64 Lymphocytes # 1.3 Lymphocytes % 19.0 Mean Corpuscular Hemoglobin 31.5 Mean Corpuscular Hemoglobin Concent 32.9 Mean Corpuscular Volume 95.8 Mean Platelet Volume 8.6 Monocytes # 0.6 Monocytes % 9.2 Neutrophils # 4.7 Neutrophils % 67.8 Nucleated Red Blood Cells # 0.0 Nucleated Red Blood Cells % 0.0 Platelet Count 226 Potassium Level 4.1 Prothrombin Time 22.8 #H Prothrombin Time Ratio 1.8 Red Blood Count 3.66 L Red Cell Distribution Width 14.3 Sodium Level 143 Triglycerides Level 92 White Blood Count 6.9 Medications Medications Current Medications Hydralazine HCl (Apresoline) 10 mg Q4H PRN IV SBP>180 Last administered on 02/26t 04:42; Admin Dose 10 MG; Start 02/26/16 at 18:00 Atorvastatin Calcium (Lipitor) 40 mg QHS PO ; Start 02/27/16 at 21:00 Amlodipine Besylate (Norvasc) 2.5 mg BID PO Last administered on 02/27/16t 08: 45; Admin Dose 2.5 MG; Start 02/27/16 at 01:00 STEPHEN RUSH MD Feb 27, 2016 15:43
--- NOTE | 2016-02-27 15:43 | CONS ---
Date/Time of Note Date/Time of Note DATE: 02/27/16 TIME: 15:43 Consultation Date/Type/Reason Admit Date/Time Feb 26, 2016 at 14:16 Initial Consult Date Exam/Review of Systems Vital Signs Vitals Vital Signs Date Time Temp Pulse Resp B/P Pulse Ox O2 Delivery O2 Flow Rate FiO2 02/27/16 15:11 97.0 76 20 185/95 97 02/27/16 00:46 Room Air Intake and Output 02/26/16 02/26/16 02/27/16 15:00 23:00 07:00 Intake Total 0 ml Balance 0 ml Results Result Diagram: 02/27/16 0716 02/27/16 0716 Results 24 hrs Laboratory Tests Test 02/26/16 18:00 02/27/16 00:20 02/27/16 07:16 Thyroid Stimulating Hormone (TSH) 1.750 Troponin I 0.032 0.037 Anion Gap 15 Basophils # 0.0 Basophils % 0.6 Blood Urea Nitrogen 28 #H Calcium Level 9.3 Carbon Dioxide Level 30 Chloride Level 102 Cholesterol Level 121 Cholesterol/HDL Ratio 3.1 Creatinine 0.96 Eosinophils # 0.2 Eosinophils % 3.4 Glucose Level 137 # HDL Cholesterol 39 Hematocrit 35.1 L Hemoglobin 11.5 L INR International Normalized Ratio 1.99 LDL Cholesterol, Calculated 64 Lymphocytes # 1.3 Lymphocytes % 19.0 Mean Corpuscular Hemoglobin 31.5 Mean Corpuscular Hemoglobin Concent 32.9 Mean Corpuscular Volume 95.8 Mean Platelet Volume 8.6 Monocytes # 0.6 Monocytes % 9.2 Neutrophils # 4.7 Neutrophils % 67.8 Nucleated Red Blood Cells # 0.0 Nucleated Red Blood Cells % 0.0 Platelet Count 226 Potassium Level 4.1 Prothrombin Time 22.8 #H Prothrombin Time Ratio 1.8 Red Blood Count 3.66 L Red Cell Distribution Width 14.3 Sodium Level 143 Triglycerides Level 92 White Blood Count 6.9 Medications Medications Current Medications Hydralazine HCl (Apresoline) 10 mg Q4H PRN IV SBP>180 Last administered on 02/26 04:42; Admin Dose 10 MG; Start 02/26/16 at 18:00 Atorvastatin Calcium (Lipitor) 40 mg QHS PO ; Start 02/27/16 at 21:00 Amlodipine Besylate (Norvasc) 2.5 mg BID PO Last administered on 1/17/17at 08: 45; Admin Dose 2.5 MG; Start 02/27/16 at 01:00 STEPHEN RUSH MD Feb 27, 2016 15:43
--- NOTE | 2016-02-27 16:31 | PN ---
Date/Time of Note Date/Time of Note DATE: 02/27/16 TIME: 16:24 Assessment/Plan VTE Prophylaxis VTE Prophylaxis Intervention: SCD's Lines/Catheters IV [facility] Saline Lock Urinary Cath still in place: No Assessment/Plan Chief Complaint/Hosp Course ASSESSMENT AND PLAN: 1. 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 Dr. Don, neurology consult is appreciated. Speech and occupational therapy evaluation. 2. Atrial fibrillation with slow ventricular response. Patient was on diltiazem at home. Dr. Tolentino is following in cardiology consultation. Continue to monitor rate and rhythm on telemetry floor. 3. Coagulopathy, monitor PT and INR. the patient is on Xarelto at home. 4. Hypertension. Continue to monitor blood pressure. Allow for permissive hypertension in view of acute stroke. 5. Benign prostatic hypertrophy. Continue Flomax and finasteride. 6. Diastolic congestive heart failure with preserved ejection fraction per echo in November of last year. Continue to monitor intake and output. Further recommendations based on clinical course. Plan of care discussed with Dr. Purvis who is covering for Dr. Villarreal. Problems: Subjective 24 Hr Interval Summary Free Text/Dictation Patient is awake alert, denies any chest pain. Exam/Review of Systems Vital Signs Vitals Vital Signs Date Time Temp Pulse Resp B/P Pulse Ox O2 Delivery O2 Flow Rate FiO2 02/27/16 15:11 97.0 76 20 185/95 97 02/27/16 00:46 Room Air Intake and Output 02/26/16 02/26/16 02/27/16 14:59 22:59 06:59 Intake Total 0 ml Balance 0 ml Exam GENERAL: Well-developed, well-nourished male in no acute distress. HEENT: Head is atraumatic, normocephalic. NECK: Supple. No cervical lymphadenopathy, no thyromegaly. CHEST: Lungs clear bilaterally. There are no rhonchi, wheezes, or rales chills noted. CARDIOVASCULAR: Irregularly irregular rhythm. Normal S2, variable S1. No murmurs, gallops, clicks, rubs noted. ABDOMEN: Round, soft, nondistended, nontender. Bowel sounds present. SKIN: There is no rash, petechiae noted. NEUROLOGIC: The patient is awake, alert, and oriented x3. Results Result Diagram: 02/27/16 0716 02/27/16 0716 Results 24 hrs Laboratory Tests Test 02/26/16 18:00 02/27/16 00:20 02/27/16 07:16 Thyroid Stimulating Hormone (TSH) 1.750 Troponin I 0.032 0.037 Anion Gap 15 Basophils # 0.0 Basophils % 0.6 Blood Urea Nitrogen 28 #H Calcium Level 9.3 Carbon Dioxide Level 30 Chloride Level 102 Cholesterol Level 121 Cholesterol/HDL Ratio 3.1 Creatinine 0.96 Eosinophils # 0.2 Eosinophils % 3.4 Glucose Level 137 # HDL Cholesterol 39 Hematocrit 35.1 L Hemoglobin 11.5 L INR International Normalized Ratio 1.99 LDL Cholesterol, Calculated 64 Lymphocytes # 1.3 Lymphocytes % 19.0 Mean Corpuscular Hemoglobin 31.5 Mean Corpuscular Hemoglobin Concent 32.9 Mean Corpuscular Volume 95.8 Mean Platelet Volume 8.6 Monocytes # 0.6 Monocytes % 9.2 Neutrophils # 4.7 Neutrophils % 67.8 Nucleated Red Blood Cells # 0.0 Nucleated Red Blood Cells % 0.0 Platelet Count 226 Potassium Level 4.1 Prothrombin Time 22.8 #H Prothrombin Time Ratio 1.8 Red Blood Count 3.66 L Red Cell Distribution Width 14.3 Sodium Level 143 Triglycerides Level 92 White Blood Count 6.9 Medications Medications Current Medications Hydralazine HCl (Apresoline) 10 mg Q4H PRN IV SBP>180 Last administered on 02/26 04:42; Admin Dose 10 MG; Start 02/26/16 at 18:00 Atorvastatin Calcium (Lipitor) 40 mg QHS PO ; Start 02/27/16 at 21:00 Amlodipine Besylate (Norvasc) 2.5 mg BID PO Last administered on 02/27/16 08: 45; Admin Dose 2.5 MG; Start 02/27/16 at 01:00 CLEO ABDULLAHI Feb 27, 2016 16:31
[2016-02-27] MEDS ORDERED: ZOLPIDEM 5 MG TAB PO PRN (17:00)
[2016-02-27 19:34] LABS: URIC ACID 5.5 mg/dl (3.1-7.9)
[2016-02-27 19:57] LABS: RETICULOCYTE COUNT % 0.5 % (0.5-1.5)
[2016-02-27 20:06] LABS: THYROID STIMULATING HORMONE 2.34 MIU/L (0.465-4.680)
[2016-02-27 20:40] LABS: FOLATE 16.8 ng/ml (2.8-20.0)
[2016-02-27 20:42] LABS: IRON 38 ug/dl (35-150); TOTAL IRON BINDING CAPACITY 272 ug/dl (241-421)
[2016-02-27] MEDS ORDERED: ATORVASTATIN 20 MG TAB PO SCH (21:00)
[2016-02-27 21:31] LABS: CARCINOEMBRYONIC ANTIGEN 1.4 ng/ml (0.0-5.0)
--- NOTE | 2016-02-27 22:02 | CONS ---
Date/Time of Note Date/Time of Note DATE: 02/27/16 TIME: 21:57 Consult Date/Type/Reason Admit Date/Time Feb 26, 2016 at 14:16 Initial Consult Date Subjective No acute events Objective Vital Signs Date Time Temp Pulse Resp B/P Pulse Ox O2 Delivery O2 Flow Rate FiO2 02/27/16 20:57 98.4 76 19 161/88 93 02/27/16 00:46 Room Air Intake and Output 02/26/16 02/26/16 02/27/16 15:00 23:00 07:00 Intake Total 0 ml Balance 0 ml Results/Medications Result Diagram: 02/27/16 0716 02/27/16 0716 Results 24 hrs Laboratory Tests Test 02/27/16 00:20 02/27/16 07:16 02/27/16 19:05 Troponin I 0.037 Anion Gap 15 Basophils # 0.0 Basophils % 0.6 Blood Urea Nitrogen 28 #H Calcium Level 9.3 Carbon Dioxide Level 30 Chloride Level 102 Cholesterol Level 121 Cholesterol/HDL Ratio 3.1 Creatinine 0.96 Eosinophils # 0.2 Eosinophils % 3.4 Glucose Level 137 # HDL Cholesterol 39 Hematocrit 35.1 L Hemoglobin 11.5 L INR International Normalized Ratio 1.99 LDL Cholesterol, Calculated 64 Lymphocytes # 1.3 Lymphocytes % 19.0 Mean Corpuscular Hemoglobin 31.5 Mean Corpuscular Hemoglobin Concent 32.9 Mean Corpuscular Volume 95.8 Mean Platelet Volume 8.6 Monocytes # 0.6 Monocytes % 9.2 Neutrophils # 4.7 Neutrophils % 67.8 Nucleated Red Blood Cells # 0.0 Nucleated Red Blood Cells % 0.0 Platelet Count 226 Potassium Level 4.1 Prothrombin Time 22.8 #H Prothrombin Time Ratio 1.8 Red Blood Count 3.66 L Red Cell Distribution Width 14.3 Sodium Level 143 Triglycerides Level 92 White Blood Count 6.9 Absolute Reticulocyte Count 0.020 Carcinoembryonic Antigen 1.4 Erythrocyte Sedimentation Rate 25 H Ferritin 183.0 Folate 16.8 Iron Level 38 Lactate Dehydrogenase 352 Percent Iron Saturation 14 L Percent Reticulocyte Count 0.5 Thyroid Stimulating Hormone (TSH) 2.340 Total Iron Binding Capacity 272 Uric Acid 5.5 Vitamin B12 Level 814 Medications Current Medications Hydralazine HCl (Apresoline) 10 mg Q4H PRN IV SBP>180 Last administered on 02/26t 04:42; Admin Dose 10 MG; Start 02/26/16 at 18:00 Atorvastatin Calcium (Lipitor) 40 mg QHS PO ; Start 02/27/16 at 21:00 Amlodipine Besylate (Norvasc) 2.5 mg BID PO Last administered on 02/27/16t 20: 43; Admin Dose 2.5 MG; Start 02/27/16 at 01:00 Finasteride (Proscar) 5 mg DAILY PO ; Start 02/28/16 at 09:00 Tamsulosin HCl (Flomax) 0.4 mg QHS PO ; Start 02/28/16 at 09:00 Zolpidem Tartrate (Ambien) 5 mg QHS PRN PO INSOMNIA; Start 02/27/16 at 17:00 Atorvastatin Calcium (Lipitor) 20 mg HS PO ; Start 02/27/16 at 21:00 Assessment/Plan Chief Complaint/Hosp Course GENERAL: Not in acute distress, lying in bed. HEENT: Normocephalic, atraumatic head. NECK: No carotid bruits. No thyromegaly. LUNGS: Clear to auscultation bilaterally. CARDIAC: Normal cardiac rhythm and sounds. ABDOMEN: Soft, nontender. EXTREMITIES: No cyanosis, clubbing, or edema. NEUROLOGIC: He is awake, alert, and oriented x3 with fluent speech. Normal visual espinal to visual threat. Pupils round, reactive to light from 3 to 2 mm bilaterally. Extraocular movements intact without nystagmus. Symmetrical face. Preserved facial strength and sensation. Tongue is in midline. Palate elevates symmetrically. Motor strength examination preserved in all extremities. Normal bulk, tone, and strength. Sensory examination grossly intact to light touch and pain. Deep tendon reflexes 2+ upper extremities and knees, absent ankle jerks. Equivocal response to plantar stimulation bilaterally Coordination preserved on [id number] testing. No dysmetria or tremor. Gait was not assessed. IMPRESSION: Acute ischemic stroke in a patient with history of atrial fibrillation, currently on anticoagulation. His INR was 4.5. Frequently, if patients on anticoagulation have acute stroke, baby aspirin being added, but given supratherapeutic INR, I will not do it at the present time. It is okay to elevated blood pressure in the first few days after acute stroke as high as 220/120, but then obtain gradual control. Keep the patient euglycemic. I will increase his Lipitor 40. Cont PT Problems: VERPUKHOVSKIY,SHANICE MD Feb 27, 2016 22:02
[2016-02-27] MEDS: ATORVASTATIN 40 MG TAB PO SCH (22:11)
[2016-02-28] VITALS (13 sets, daily range): BP systolic 152–192; BP diastolic 69–108; PULSE 53–109; RESP 18–20
[2016-02-28] MEDS: hydrALAzine 20 MG INJ IV PRN ×2 (04:00→12:13)
[2016-02-28 07:14] LABS: BASOPHIL # 0.1 10^3/ul (0.0-0.1); BASOPHILS % 0.9 % (0.0-2.0); EOSINOPHILS # 0.3 10^3/ul (0.0-0.5); EOSINOPHILS % 4.1 % (0.0-7.0); HEMATOCRIT 34.7 % (42.0-52.0); HEMOGLOBIN 11.5 g/dl (14.0-18.0); LYMPHOCYTES # 1.2 10^3/ul (0.8-2.9); LYMPHOCYTES % 19.7 % (15.0-51.0); MEAN CORPUSCULAR HEMOGLOBIN 31.6 pg (29.0-33.0); MEAN CORPUSCULAR HGB CONC 33.3 g/dl (32.0-37.0); MEAN PLATELET VOLUME 8.4 fl (7.4-10.4); MONOCYTE # 0.5 10^3/ul (0.3-0.9); MONOCYTES % 8.4 % (0.0-11.0); NEUTROPHIL # 4.2 10^3/ul (1.6-7.5); NEUTROPHILS % 66.9 % (39.0-77.0); PLATELET COUNT 244 10^3/UL (140-440); RED BLOOD COUNT 3.65 10^6/ul (4.70-6.10); RED CELL DISTRIBUTION WIDTH 14.1 % (11.5-14.5); UNCORRECTED WBC 6.3 10^3/ul (4.8-10.8); WHITE BLOOD COUNT 6.3 10^3/ul (4.8-10.8)
[2016-02-28 07:19] LABS: CONDITION 1
[2016-02-28 07:40] LABS: CREATININE 0.88 mg/dl (0.61-1.24)
[2016-02-28 07:41] LABS: CALCIUM 9.1 mg/dl (8.4-10.2)
[2016-02-28] MEDS: FINASTERIDE 5 MG TAB PO SCH (09:00)
[2016-02-28] MEDS: TAMSULOSIN (SR) 0.4 MG CAP PO SCH ×2 (09:00→21:20)
[2016-02-28] MEDS: AMLODIPINE 2.5 MG TAB PO SCH ×2 (09:00→21:20)
--- NOTE | 2016-02-28 11:10 | CONS ---
Date/Time of Note Date/Time of Note DATE: 02/28/16 TIME: 11:02 Assessment/Plan Assessment/Plan Chief Complaint/Hosp Course IMPRESSION: 1. Atrial fibrillation with slow ventricular response-no sig jennifer off of dilt 2. Abnormal electrocardiogram, assess for acute coronary syndrome. 3. Congestive heart failure with chest x-ray would be diastolic, acute on chronic, by most recent echo, ejection fraction of 50%, November 2015. 4. Hypertension. 5. Acute cerebrovascular accident by MRI, frontoparietal. 6. Dementia. 7. History of coronary artery disease. 8. Anemia. 9. Coagulopathy with supratherapeutic INR-now downtrended 10. Dyslipidemia Recc -Tele -serial ecg's -low dose norvasc with some permissive HTN -Continue statin -Likely resume xarelto in next 1-2 days Problems: Consultation Date/Type/Reason Admit Date/Time Feb 26, 2016 at 14:16 Initial Consult Date 02/28/2016 Type of Consultation: Cardiology Reason for Consultation HTN/AF Referring Provider: LUAN SCHERER MD Exam/Review of Systems Vital Signs Vitals Vital Signs Date Time Temp Pulse Resp B/P Pulse Ox O2 Delivery O2 Flow Rate FiO2 02/28/16 10:00 163/87 02/28/16 08:23 80 02/28/16 07:20 98.3 18 90 02/27/16 00:46 Room Air Intake and Output 02/27/16 02/27/16 02/28/16 15:00 23:00 07:00 Intake Total 360 ml Balance 360 ml Exam Review of Systems: CONSTITUTIONAL: No fevers, chills. PULMONARY: No sob CARDIOVASCULAR: No chest pain/palpitations GASTROINTESTINAL: No nausea/vomiting. GENITOURINARY: No hematuria/dysuria. MUSCULOSKELETAL: No myagias/arthalgias. PSYCHIATRIC: The patient denies depression. NEUROLOGIC: Mild weakness Constitutional: alert, oriented Psych: no complaints Head: normocephalic ENMT: mucosa pink and moist Neck: jvd (9 cm water), supple Respiratory: diminished breath sounds Cardiovascular: regular rate and rhythm Gastrointestinal: non-tender, soft Musculoskeletal: muscle tone (normal) Extremities: edema (none) Neurological: other (No focal deficits) Results Result Diagram: 02/28/16 0611 02/28/16 0611 Results 24 hrs Laboratory Tests Test 02/27/16 19:05 02/28/16 06:11 Absolute Reticulocyte Count 0.020 Carcinoembryonic Antigen 1.4 Erythrocyte Sedimentation Rate 25 H Ferritin 183.0 Folate 16.8 Iron Level 38 Lactate Dehydrogenase 352 Percent Iron Saturation 14 L Percent Reticulocyte Count 0.5 Thyroid Stimulating Hormone (TSH) 2.340 Total Iron Binding Capacity 272 Uric Acid 5.5 Vitamin B12 Level 814 Anion Gap 13 Basophils # 0.1 Basophils % 0.9 Blood Urea Nitrogen 22 H Calcium Level 9.1 Carbon Dioxide Level 32 H Chloride Level 100 Creatinine 0.88 Eosinophils # 0.3 Eosinophils % 4.1 Glucose Level 132 Hematocrit 34.7 L Hemoglobin 11.5 L Lymphocytes # 1.2 Lymphocytes % 19.7 Mean Corpuscular Hemoglobin 31.6 Mean Corpuscular Hemoglobin Concent 33.3 Mean Corpuscular Volume 95.0 Mean Platelet Volume 8.4 Monocytes # 0.5 Monocytes % 8.4 Neutrophils # 4.2 Neutrophils % 66.9 Nucleated Red Blood Cells # 0.0 Nucleated Red Blood Cells % 0.0 Platelet Count 244 Potassium Level 4.0 Red Blood Count 3.65 L Red Cell Distribution Width 14.1 Sodium Level 141 White Blood Count 6.3 Medications Medications Current Medications Hydralazine HCl (Apresoline) 10 mg Q4H PRN IV SBP>180 Last administered on 02/27 04:00; Admin Dose 10 MG; Start 02/26/16 at 18:00 Atorvastatin Calcium (Lipitor) 40 mg QHS PO Last administered on 02/27/16 22: 11; Admin Dose 40 MG; Start 02/27/16 at 21:00 Amlodipine Besylate (Norvasc) 2.5 mg BID PO Last administered on 02/28/16 09: 00; Admin Dose 2.5 MG; Start 02/27/16 at 01:00 Finasteride (Proscar) 5 mg DAILY PO Last administered on 02/28/16 09:00; Admin Dose 5 MG; Start 02/28/16 at 09:00 Tamsulosin HCl (Flomax) 0.4 mg QHS PO Last administered on 02/28/16 09:00; Admin Dose 0.4 MG; Start 02/28/16 at 09:00 Zolpidem Tartrate (Ambien) 5 mg QHS PRN PO INSOMNIA; Start 02/27/16 at 17:00 ROJELIO VILLAFANA Feb 28, 2016 11:09
[2016-02-28] MEDS ORDERED: FUROSEMIDE 20 MG INJ IV ONE (11:30)
--- NOTE | 2016-02-28 16:17 | PN ---
Date/Time of Note Date/Time of Note DATE: 02/28/16 TIME: 16:13 Assessment/Plan VTE Prophylaxis VTE Prophylaxis Intervention: SCD's Lines/Catheters IV [facility] Urinary Cath still in place: No Assessment/Plan Chief Complaint/Hosp Course ASSESSMENT AND PLAN: 1. 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 Dr. Don, neurology consult is appreciated. Continue to monitor neuro status. continue PT and OT. 2. Atrial fibrillation with slow ventricular response. Patient was on diltiazem at home which is held. Dr. Tolentino is following in cardiology consultation. Continue to monitor rate and rhythm on telemetry floor. INR is 1.99. Discussed with Dr. Dey cardiology. Will resume Xarelto at the lower dose tomorrow if INR continues to trend down. 3. Coagulopathy, monitor PT and INR. the patient is on Xarelto at home. 4. Hypertension. Continue to monitor blood pressure. Allow for permissive hypertension in view of acute stroke. 5. Benign prostatic hypertrophy. Continue Flomax and finasteride. 6. Diastolic congestive heart failure with preserved ejection fraction per echo in November of last year. Continue to monitor intake and output. Further recommendations based on clinical course. Plan of care discussed with Dr. Purvis who is covering for Dr. Vlilarreal. Problems: Subjective 24 Hr Interval Summary Free Text/Dictation Patient is in atrial fibrillation with slow ventricular response, heart rate slows to 38 per monitor tach, continue to monitor on telemetry floor. Patient is awake alert was able to work with physical therapy. Continue to monitor on telemetry. Exam/Review of Systems Vital Signs Vitals Vital Signs Date Time Temp Pulse Resp B/P Pulse Ox O2 Delivery O2 Flow Rate FiO2 02/28/16 15:00 98.8 88 19 174/91 94 02/27/16 00:46 Room Air Intake and Output 02/27/16 02/27/16 02/28/16 15:00 23:00 07:00 Intake Total 360 ml Balance 360 ml Exam GENERAL: Well-developed, well-nourished male in no acute distress. HEENT: Head is atraumatic, normocephalic. NECK: Supple. No cervical lymphadenopathy, no thyromegaly. CHEST: Lungs clear bilaterally. There are no rhonchi, wheezes, or rales chills noted. CARDIOVASCULAR: Irregularly irregular rhythm. Normal S2, variable S1. No murmurs, gallops, clicks, rubs noted. ABDOMEN: Round, soft, nondistended, nontender. Bowel sounds present. SKIN: There is no rash, petechiae noted. NEUROLOGIC: The patient is awake, alert, and oriented x3. Results Result Diagram: 02/28/16 0611 02/28/16 0611 Results 24 hrs Laboratory Tests Test 02/27/16 19:05 02/28/16 06:11 Absolute Reticulocyte Count 0.020 Carcinoembryonic Antigen 1.4 Erythrocyte Sedimentation Rate 25 H Ferritin 183.0 Folate 16.8 Iron Level 38 Lactate Dehydrogenase 352 Percent Iron Saturation 14 L Percent Reticulocyte Count 0.5 Thyroid Stimulating Hormone (TSH) 2.340 Total Iron Binding Capacity 272 Uric Acid 5.5 Vitamin B12 Level 814 Anion Gap 13 Basophils # 0.1 Basophils % 0.9 Blood Urea Nitrogen 22 H Calcium Level 9.1 Carbon Dioxide Level 32 H Chloride Level 100 Creatinine 0.88 Eosinophils # 0.3 Eosinophils % 4.1 Glucose Level 132 Hematocrit 34.7 L Hemoglobin 11.5 L Lymphocytes # 1.2 Lymphocytes % 19.7 Mean Corpuscular Hemoglobin 31.6 Mean Corpuscular Hemoglobin Concent 33.3 Mean Corpuscular Volume 95.0 Mean Platelet Volume 8.4 Monocytes # 0.5 Monocytes % 8.4 Neutrophils # 4.2 Neutrophils % 66.9 Nucleated Red Blood Cells # 0.0 Nucleated Red Blood Cells % 0.0 Platelet Count 244 Potassium Level 4.0 Red Blood Count 3.65 L Red Cell Distribution Width 14.1 Sodium Level 141 White Blood Count 6.3 Medications Medications Current Medications Hydralazine HCl (Apresoline) 10 mg Q4H PRN IV SBP>180 Last administered on 02/27 12:13; Admin Dose 10 MG; Start 02/26/16 at 18:00 Atorvastatin Calcium (Lipitor) 40 mg QHS PO Last administered on 02/27/16 22: 11; Admin Dose 40 MG; Start 02/27/16 at 21:00 Amlodipine Besylate (Norvasc) 2.5 mg BID PO Last administered on 02/28/16 09: 00; Admin Dose 2.5 MG; Start 02/27/16 at 01:00 Finasteride (Proscar) 5 mg DAILY PO Last administered on 02/28/16 09:00; Admin Dose 5 MG; Start 02/28/16 at 09:00 Tamsulosin HCl (Flomax) 0.4 mg QHS PO Last administered on 02/28/16 09:00; Admin Dose 0.4 MG; Start 02/28/16 at 09:00 Zolpidem Tartrate (Ambien) 5 mg QHS PRN PO INSOMNIA; Start 02/27/16 at 17:00 CLEO ABDULLAHI Feb 28, 2016 16:17
--- NOTE | 2016-02-28 20:31 | CONS ---
Date/Time of Note Date/Time of Note DATE: 02/28/16 TIME: 20:29 Consult Date/Type/Reason Admit Date/Time Feb 26, 2016 at 14:16 Type of Consultation: neurology Ordering Provider: LUAN SCHERER MD Subjective No acute events Objective Vital Signs Date Time Temp Pulse Resp B/P Pulse Ox O2 Delivery O2 Flow Rate FiO2 02/28/16 20:08 80 02/28/16 15:00 98.8 19 174/91 94 02/27/16 00:46 Room Air Intake and Output 02/27/16 02/27/16 02/28/16 15:00 23:00 07:00 Intake Total 360 ml Balance 360 ml Results/Medications Result Diagram: 02/28/16 0611 02/28/16 0611 Results 24 hrs Laboratory Tests Test 02/28/16 06:11 Anion Gap 13 Basophils # 0.1 Basophils % 0.9 Blood Urea Nitrogen 22 H Calcium Level 9.1 Carbon Dioxide Level 32 H Chloride Level 100 Creatinine 0.88 Eosinophils # 0.3 Eosinophils % 4.1 Glucose Level 132 Hematocrit 34.7 L Hemoglobin 11.5 L Lymphocytes # 1.2 Lymphocytes % 19.7 Mean Corpuscular Hemoglobin 31.6 Mean Corpuscular Hemoglobin Concent 33.3 Mean Corpuscular Volume 95.0 Mean Platelet Volume 8.4 Monocytes # 0.5 Monocytes % 8.4 Neutrophils # 4.2 Neutrophils % 66.9 Nucleated Red Blood Cells # 0.0 Nucleated Red Blood Cells % 0.0 Platelet Count 244 Potassium Level 4.0 Red Blood Count 3.65 L Red Cell Distribution Width 14.1 Sodium Level 141 White Blood Count 6.3 Medications Current Medications Hydralazine HCl (Apresoline) 10 mg Q4H PRN IV SBP>180 Last administered on 02/27 12:13; Admin Dose 10 MG; Start 02/26/16 at 18:00 Atorvastatin Calcium (Lipitor) 40 mg QHS PO Last administered on 02/27/16 22: 11; Admin Dose 40 MG; Start 02/27/16 at 21:00 Amlodipine Besylate (Norvasc) 2.5 mg BID PO Last administered on 02/28/16 09: 00; Admin Dose 2.5 MG; Start 02/27/16 at 01:00 Finasteride (Proscar) 5 mg DAILY PO Last administered on 02/28/16 09:00; Admin Dose 5 MG; Start 02/28/16 at 09:00 Tamsulosin HCl (Flomax) 0.4 mg QHS PO Last administered on 02/28/16 09:00; Admin Dose 0.4 MG; Start 02/28/16 at 09:00 Zolpidem Tartrate (Ambien) 5 mg QHS PRN PO INSOMNIA; Start 02/27/16 at 17:00 Assessment/Plan Chief Complaint/Hosp Course GENERAL: Not in acute distress, lying in bed. HEENT: Normocephalic, atraumatic head. NECK: No carotid bruits. No thyromegaly. LUNGS: Clear to auscultation bilaterally. CARDIAC: Normal cardiac rhythm and sounds. ABDOMEN: Soft, nontender. EXTREMITIES: No cyanosis, clubbing, or edema. NEUROLOGIC: He is awake, alert, and oriented x3 with fluent speech. Normal visual espinal to visual threat. Pupils round, reactive to light from 3 to 2 mm bilaterally. Extraocular movements intact without nystagmus. Symmetrical face. Preserved facial strength and sensation. Tongue is in midline. Palate elevates symmetrically. Motor strength examination preserved in all extremities. Normal bulk, tone, and strength. Sensory examination grossly intact to light touch and pain. Deep tendon reflexes 2+ upper extremities and knees, absent ankle jerks. Equivocal response to plantar stimulation bilaterally Coordination preserved on [id number] testing. No dysmetria or tremor. Gait was not assessed. IMPRESSION: Acute ischemic stroke in a patient with history of atrial fibrillation, on anticoagulation. Keep the patient euglycemic,normotensive. continue statin. Problems: SHANICE GIRON MD Feb 28, 2016 20:31
[2016-02-28] MEDS: ATORVASTATIN 40 MG TAB PO SCH (21:20)
--- NOTE | 2016-02-28 23:31 | CONS ---
Date/Time of Note Date/Time of Note DATE: 02/28/16 TIME: 23:31 Consultation Date/Type/Reason Admit Date/Time Feb 26, 2016 at 14:16 Referring Provider: LUAN SCHERER MD Exam/Review of Systems Vital Signs Vitals Vital Signs Date Time Temp Pulse Resp B/P Pulse Ox O2 Delivery O2 Flow Rate FiO2 02/28/16 20:08 80 02/28/16 19:00 98.4 18 153/73 93 02/27/16 00:46 Room Air Intake and Output 02/27/16 02/27/16 02/28/16 15:00 23:00 07:00 Intake Total 360 ml Balance 360 ml Results Result Diagram: 02/28/16 0611 02/28/16 0611 Results 24 hrs Laboratory Tests Test 02/28/16 06:11 Anion Gap 13 Basophils # 0.1 Basophils % 0.9 Blood Urea Nitrogen 22 H Calcium Level 9.1 Carbon Dioxide Level 32 H Chloride Level 100 Creatinine 0.88 Eosinophils # 0.3 Eosinophils % 4.1 Glucose Level 132 Hematocrit 34.7 L Hemoglobin 11.5 L Lymphocytes # 1.2 Lymphocytes % 19.7 Mean Corpuscular Hemoglobin 31.6 Mean Corpuscular Hemoglobin Concent 33.3 Mean Corpuscular Volume 95.0 Mean Platelet Volume 8.4 Monocytes # 0.5 Monocytes % 8.4 Neutrophils # 4.2 Neutrophils % 66.9 Nucleated Red Blood Cells # 0.0 Nucleated Red Blood Cells % 0.0 Platelet Count 244 Potassium Level 4.0 Red Blood Count 3.65 L Red Cell Distribution Width 14.1 Sodium Level 141 White Blood Count 6.3 Medications Medications Current Medications Hydralazine HCl (Apresoline) 10 mg Q4H PRN IV SBP>180 Last administered on 02/27 12:13; Admin Dose 10 MG; Start 02/26/16 at 18:00 Atorvastatin Calcium (Lipitor) 40 mg QHS PO Last administered on 02/28/16 21: 20; Admin Dose 40 MG; Start 02/27/16 at 21:00 Amlodipine Besylate (Norvasc) 2.5 mg BID PO Last administered on 02/28/16 21: 20; Admin Dose 2.5 MG; Start 02/27/16 at 01:00 Finasteride (Proscar) 5 mg DAILY PO Last administered on 02/28/16 09:00; Admin Dose 5 MG; Start 02/28/16 at 09:00 Tamsulosin HCl (Flomax) 0.4 mg QHS PO Last administered on 02/28/16 21:20; Admin Dose 0.4 MG; Start 02/28/16 at 09:00 Zolpidem Tartrate (Ambien) 5 mg QHS PRN PO INSOMNIA; Start 02/27/16 at 17:00 STEPHEN RUSH MD Feb 28, 2016 23:31
[2016-02-29] VITALS (13 sets, daily range): BP systolic 129–185; BP diastolic 62–96; PULSE 55–93; RESP 18–20
[2016-02-29 06:49] LABS: POTASSIUM 4.1 mmol/L (3.5-5.1)
[2016-02-29 06:51] LABS: BASOPHILS % 0.4 % (0.0-2.0); CREATININE 0.95 mg/dl (0.61-1.24); EOSINOPHILS # 0.1 10^3/ul (0.0-0.5); EOSINOPHILS % 2.5 % (0.0-7.0); HEMATOCRIT 35.8 % (42.0-52.0); LYMPHOCYTES # 1.4 10^3/ul (0.8-2.9); LYMPHOCYTES % 23.8 % (15.0-51.0); MEAN CORPUSCULAR HEMOGLOBIN 31.5 pg (29.0-33.0); MEAN CORPUSCULAR HGB CONC 33.4 g/dl (32.0-37.0); MEAN CORPUSCULAR VOLUME 94.2 fl (82.0-101.0); MONOCYTE # 0.5 10^3/ul (0.3-0.9); MONOCYTES % 8.3 % (0.0-11.0); NEUTROPHIL # 3.8 10^3/ul (1.6-7.5); PLATELET COUNT 246 10^3/UL (140-440); RED CELL DISTRIBUTION WIDTH 14.4 % (11.5-14.5); UNCORRECTED WBC 5.8 10^3/ul (4.8-10.8); WHITE BLOOD COUNT 5.8 10^3/ul (4.8-10.8)
[2016-02-29 06:52] LABS: CALCIUM 8.7 mg/dl (8.4-10.2)
[2016-02-29 06:54] LABS: INR 1.17; PT RATIO 1.2
[2016-02-29 07:06] LABS: CONDITION 1
[2016-02-29] MEDS: AMLODIPINE 2.5 MG TAB PO SCH ×2 (08:39→20:53)
[2016-02-29] MEDS: FINASTERIDE 5 MG TAB PO SCH (08:39)
[2016-02-29] MEDS: hydrALAzine 20 MG INJ IV PRN (11:46)
--- NOTE | 2016-02-29 12:10 | CONS ---
Date/Time of Note Date/Time of Note DATE: 02/29/16 TIME: 12:09 Consultation Date/Type/Reason Admit Date/Time Feb 26, 2016 at 14:16 Referring Provider: LUAN SCHERER MD Exam/Review of Systems Vital Signs Vitals Vital Signs Date Time Temp Pulse Resp B/P Pulse Ox O2 Delivery O2 Flow Rate FiO2 02/29/16 12:02 97.5 74 18 185/96 97 02/27/16 00:46 Room Air Intake and Output 02/28/16 02/28/16 02/29/16 15:00 23:00 07:00 Intake Total 720 ml 480 ml Output Total 600 ml Balance 720 ml -120 ml Results Result Diagram: 02/29/16 0615 02/29/16 0615 Results 24 hrs Laboratory Tests Test 02/29/16 06:15 Anion Gap 16 Basophils # 0.0 Basophils % 0.4 Blood Urea Nitrogen 27 H Calcium Level 8.7 Carbon Dioxide Level 31 Chloride Level 98 Creatinine 0.95 Eosinophils # 0.1 Eosinophils % 2.5 Glucose Level 141 Hematocrit 35.8 L Hemoglobin 12.0 L INR International Normalized Ratio 1.17 Lymphocytes # 1.4 Lymphocytes % 23.8 Magnesium Level 1.8 Mean Corpuscular Hemoglobin 31.5 Mean Corpuscular Hemoglobin Concent 33.4 Mean Corpuscular Volume 94.2 Mean Platelet Volume 8.0 Monocytes # 0.5 Monocytes % 8.3 Neutrophils # 3.8 Neutrophils % 65.0 Nucleated Red Blood Cells # 0.0 Nucleated Red Blood Cells % 0.0 Platelet Count 246 Potassium Level 4.1 Prothrombin Time 15.0 #H Prothrombin Time Ratio 1.2 Red Blood Count 3.80 L Red Cell Distribution Width 14.4 Sodium Level 141 White Blood Count 5.8 Medications Medications Current Medications Hydralazine HCl (Apresoline) 10 mg Q4H PRN IV SBP>180 Last administered on 02/28 11:46; Admin Dose 10 MG; Start 02/26/16 at 18:00 Atorvastatin Calcium (Lipitor) 40 mg QHS PO Last administered on 02/28/16 21: 20; Admin Dose 40 MG; Start 02/27/16 at 21:00 Amlodipine Besylate (Norvasc) 2.5 mg BID PO Last administered on 02/29/16 08: 39; Admin Dose 2.5 MG; Start 02/27/16 at 01:00 Finasteride (Proscar) 5 mg DAILY PO Last administered on 02/29/16 08:39; Admin Dose 5 MG; Start 02/28/16 at 09:00 Tamsulosin HCl (Flomax) 0.4 mg QHS PO Last administered on 02/28/16 21:20; Admin Dose 0.4 MG; Start 02/28/16 at 09:00 Zolpidem Tartrate (Ambien) 5 mg QHS PRN PO INSOMNIA; Start 02/27/16 at 17:00 STEPHEN RUSH MD Feb 29, 2016 12:10
--- NOTE | 2016-02-29 12:56 | CONS ---
Date/Time of Note Date/Time of Note DATE: 02/29/16 TIME: 12:50 Assessment/Plan Assessment/Plan Chief Complaint/Hosp Course IMPRESSION: 1. Atrial fibrillation with slow ventricular response-no sig jennifer off of dilt 2. Abnormal electrocardiogram, assess for acute coronary syndrome. 3. Congestive heart failure with chest x-ray would be diastolic, acute on chronic, by most recent echo, ejection fraction of 50%, November 2015. 4. Hypertension. 5. Acute cerebrovascular accident by MRI, frontoparietal. 6. Dementia. 7. History of coronary artery disease. 8. Anemia. 9. Coagulopathy with supratherapeutic INR-now improved 10. Dyslipidemia Recc -Tele -serial ecg's - INcrease low dose norvasc to improve HTN -Continue statin -Resume xarelto as INR now improved Problems: Consultation Date/Type/Reason Admit Date/Time Feb 26, 2016 at 14:16 Initial Consult Date 02/28/2016 Type of Consultation: Cardiology Reason for Consultation AF Referring Provider: LUAN SCHERER MD Exam/Review of Systems Vital Signs Vitals Vital Signs Date Time Temp Pulse Resp B/P Pulse Ox O2 Delivery O2 Flow Rate FiO2 02/29/16 12:20 88 02/29/16 12:02 97.5 18 185/96 97 02/27/16 00:46 Room Air Intake and Output 02/28/16 02/28/16 02/29/16 15:00 23:00 07:00 Intake Total 720 ml 480 ml Output Total 600 ml Balance 720 ml -120 ml Exam Review of Systems: CONSTITUTIONAL: No fevers, chills. PULMONARY: No sob CARDIOVASCULAR: No chest pain/palpitations GASTROINTESTINAL: No nausea/vomiting. GENITOURINARY: No hematuria/dysuria. MUSCULOSKELETAL: No myagias/arthalgias. PSYCHIATRIC: The patient denies depression. NEUROLOGIC: No weakness Constitutional: other (sleeping) Psych: no complaints Head: normocephalic ENMT: mucosa pink and moist Neck: jvd, supple Respiratory: diminished breath sounds (at bases/B) Cardiovascular: regular rate and rhythm Gastrointestinal: soft Musculoskeletal: muscle tone (normal) Extremities: edema (none) Neurological: other (No focal deficits) Results Result Diagram: 02/29/16 0615 02/29/16 0615 Results 24 hrs Laboratory Tests Test 02/29/16 06:15 Anion Gap 16 Basophils # 0.0 Basophils % 0.4 Blood Urea Nitrogen 27 H Calcium Level 8.7 Carbon Dioxide Level 31 Chloride Level 98 Creatinine 0.95 Eosinophils # 0.1 Eosinophils % 2.5 Glucose Level 141 Hematocrit 35.8 L Hemoglobin 12.0 L INR International Normalized Ratio 1.17 Lymphocytes # 1.4 Lymphocytes % 23.8 Magnesium Level 1.8 Mean Corpuscular Hemoglobin 31.5 Mean Corpuscular Hemoglobin Concent 33.4 Mean Corpuscular Volume 94.2 Mean Platelet Volume 8.0 Monocytes # 0.5 Monocytes % 8.3 Neutrophils # 3.8 Neutrophils % 65.0 Nucleated Red Blood Cells # 0.0 Nucleated Red Blood Cells % 0.0 Platelet Count 246 Potassium Level 4.1 Prothrombin Time 15.0 #H Prothrombin Time Ratio 1.2 Red Blood Count 3.80 L Red Cell Distribution Width 14.4 Sodium Level 141 White Blood Count 5.8 Medications Medications Current Medications Hydralazine HCl (Apresoline) 10 mg Q4H PRN IV SBP>180 Last administered on 02/28 11:46; Admin Dose 10 MG; Start 02/26/16 at 18:00 Atorvastatin Calcium (Lipitor) 40 mg QHS PO Last administered on 02/28/16 21: 20; Admin Dose 40 MG; Start 02/27/16 at 21:00 Amlodipine Besylate (Norvasc) 2.5 mg BID PO Last administered on 02/29/16 08: 39; Admin Dose 2.5 MG; Start 02/27/16 at 01:00 Finasteride (Proscar) 5 mg DAILY PO Last administered on 02/29/16 08:39; Admin Dose 5 MG; Start 02/28/16 at 09:00 Tamsulosin HCl (Flomax) 0.4 mg QHS PO Last administered on 02/28/16 21:20; Admin Dose 0.4 MG; Start 02/28/16 at 09:00 Zolpidem Tartrate (Ambien) 5 mg QHS PRN PO INSOMNIA; Start 02/27/16 at 17:00 ROJELIO VILLAFANA Feb 29, 2016 12:56
--- NOTE | 2016-02-29 15:42 | PN ---
Date/Time of Note Date/Time of Note DATE: 02/29/16 TIME: 15:42 Assessment/Plan Lines/Catheters IV C[facility]ter Type (from [email or web address] Saline Lock Urinary Cath still in place: No Assessment/Plan Assessment/Plan 1. 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 Dr. Don, neurology consult is appreciated. Continue to monitor neuro status. continue PT and OT. 2. Atrial fibrillation with slow ventricular response. Patient was on diltiazem at home which is held. Dr. Tolentino is following in cardiology consultation. Continue to monitor rate and rhythm on telemetry floor. INR is 1.99. Discussed with Dr. Dey cardiology. Will resume Xarelto at the lower dose tomorrow if INR continues to trend down. 3. Coagulopathy, monitor PT and INR. the patient is on Xarelto at home. 4. Hypertension. Continue to monitor blood pressure. Allow for permissive hypertension in view of acute stroke. 5. Benign prostatic hypertrophy. Continue Flomax and finasteride. 6. Diastolic congestive heart failure with preserved ejection fraction per echo in November of last year. Continue to monitor intake and output. Further recommendations based on clinical course. Plan of care discussed with Dr. Purvis who is covering for Dr. Villarreal. Exam/Review of Systems Vital Signs Vitals Vital Signs Date Time Temp Pulse Resp B/P Pulse Ox O2 Delivery O2 Flow Rate FiO2 02/29/16 13:00 81 137/73 02/29/16 12:02 97.5 18 97 02/27/16 00:46 Room Air Intake and Output 02/28/16 02/28/16 02/29/16 15:00 23:00 07:00 Intake Total 720 ml 480 ml Output Total 600 ml Balance 720 ml -120 ml Results Result Diagram: 02/29/16 0615 02/29/16 0615 Results 24 hrs Laboratory Tests Test 02/29/16 06:15 Anion Gap 16 Basophils # 0.0 Basophils % 0.4 Blood Urea Nitrogen 27 H Calcium Level 8.7 Carbon Dioxide Level 31 Chloride Level 98 Creatinine 0.95 Eosinophils # 0.1 Eosinophils % 2.5 Glucose Level 141 Hematocrit 35.8 L Hemoglobin 12.0 L INR International Normalized Ratio 1.17 Lymphocytes # 1.4 Lymphocytes % 23.8 Magnesium Level 1.8 Mean Corpuscular Hemoglobin 31.5 Mean Corpuscular Hemoglobin Concent 33.4 Mean Corpuscular Volume 94.2 Mean Platelet Volume 8.0 Monocytes # 0.5 Monocytes % 8.3 Neutrophils # 3.8 Neutrophils % 65.0 Nucleated Red Blood Cells # 0.0 Nucleated Red Blood Cells % 0.0 Platelet Count 246 Potassium Level 4.1 Prothrombin Time 15.0 #H Prothrombin Time Ratio 1.2 Red Blood Count 3.80 L Red Cell Distribution Width 14.4 Sodium Level 141 White Blood Count 5.8 Medications Medications Current Medications Hydralazine HCl (Apresoline) 10 mg Q4H PRN IV SBP>180 Last administered on 02/28 11:46; Admin Dose 10 MG; Start 02/26/16 at 18:00 Atorvastatin Calcium (Lipitor) 40 mg QHS PO Last administered on 02/28/16 21: 20; Admin Dose 40 MG; Start 02/27/16 at 21:00 Amlodipine Besylate (Norvasc) 2.5 mg BID PO Last administered on 02/29/16 08: 39; Admin Dose 2.5 MG; Start 02/27/16 at 01:00; Stop 03/01/16 at 09:00 Finasteride (Proscar) 5 mg DAILY PO Last administered on 02/29/16 08:39; Admin Dose 5 MG; Start 02/28/16 at 09:00 Tamsulosin HCl (Flomax) 0.4 mg QHS PO Last administered on 02/28/16 21:20; Admin Dose 0.4 MG; Start 02/28/16 at 09:00 Zolpidem Tartrate (Ambien) 5 mg QHS PRN PO INSOMNIA; Start 02/27/16 at 17:00 Amlodipine Besylate (Norvasc) 5 mg AM PO ; Start 03/01/16 at 09:00 Amlodipine Besylate (Norvasc) 2.5 mg HS PO ; Start 02/29/16 at 21:00 TAWANNA LOYA Feb 29, 2016 15:42
[2016-02-29 16:20] LABS: CHOL/HDL RATIO 2.8 RATIO
[2016-02-29 16:45] LABS: PSA, FREE 0.1 ng/mL
[2016-02-29] MEDS: ATORVASTATIN 40 MG TAB PO SCH (20:52)
[2016-02-29] MEDS: TAMSULOSIN (SR) 0.4 MG CAP PO SCH (20:53)
[2016-03-01] VITALS (15 sets, daily range): BP systolic 133–172; BP diastolic 62–89; PULSE 61–81; RESP 18–20
[2016-03-01 07:26] LABS: BASOPHILS % 0.7 % (0.0-2.0); EOSINOPHILS # 0.2 10^3/ul (0.0-0.5); EOSINOPHILS % 2.8 % (0.0-7.0); HEMATOCRIT 33.6 % (42.0-52.0); HEMOGLOBIN 11.3 g/dl (14.0-18.0); INR 1.28; LYMPHOCYTES # 1.4 10^3/ul (0.8-2.9); LYMPHOCYTES % 25.3 % (15.0-51.0); MEAN CORPUSCULAR HEMOGLOBIN 31.6 pg (29.0-33.0); MEAN CORPUSCULAR HGB CONC 33.5 g/dl (32.0-37.0); MEAN CORPUSCULAR VOLUME 94.3 fl (82.0-101.0); MEAN PLATELET VOLUME 8.2 fl (7.4-10.4); MONOCYTE # 0.5 10^3/ul (0.3-0.9); MONOCYTES % 8.4 % (0.0-11.0); NEUTROPHIL # 3.6 10^3/ul (1.6-7.5); NEUTROPHILS % 62.8 % (39.0-77.0); PLATELET COUNT 234 10^3/UL (140-440); PROTIME 16.1 Sec (12.2-14.2); PT RATIO 1.3; RED BLOOD COUNT 3.56 10^6/ul (4.70-6.10); RED CELL DISTRIBUTION WIDTH 14.2 % (11.5-14.5); UNCORRECTED WBC 5.7 10^3/ul (4.8-10.8); WHITE BLOOD COUNT 5.7 10^3/ul (4.8-10.8)
[2016-03-01 07:27] LABS: POTASSIUM 4.1 mmol/L (3.5-5.1)
[2016-03-01 07:30] LABS: CONDITION 1; CREATININE 0.93 mg/dl (0.61-1.24)
[2016-03-01 07:31] LABS: CALCIUM 8.7 mg/dl (8.4-10.2)
[2016-03-01] MEDS: AMLODIPINE 5 MG TAB PO SCH (08:16)
[2016-03-01] MEDS: FINASTERIDE 5 MG TAB PO SCH (08:16)
--- NOTE | 2016-03-01 10:48 | CONS ---
Date/Time of Note Date/Time of Note DATE: 03/01/16 TIME: 10:45 Assessment/Plan Assessment/Plan Chief Complaint/Hosp Course IMPRESSION: 1. Atrial fibrillation with slow ventricular response-no sig jennifer off of dilt 2. Abnormal electrocardiogram, assess for acute coronary syndrome. 3. Congestive heart failure with chest x-ray would be diastolic, acute on chronic, by most recent echo, ejection fraction of 50%, November 2015. 4. Hypertension. 5. Acute cerebrovascular accident by MRI, frontoparietal. 6. Dementia. 7. History of coronary artery disease. 8. Anemia. 9. Coagulopathy with supratherapeutic INR-now improved 10. Dyslipidemia Recc -Tele -serial ecg's -Will continue current dose of norvasc and follow BP closely -Continue statin -Resume xarelto as INR now improved -Follow MS closely/ongoing neuro eval Problems: Consultation Date/Type/Reason Admit Date/Time Feb 26, 2016 at 14:16 Initial Consult Date 02/28/2016 Type of Consultation: Cardiology Reason for Consultation AF/HTN Referring Provider: LUAN SCHERER MD Exam/Review of Systems Vital Signs Vitals Vital Signs Date Time Temp Pulse Resp B/P Pulse Ox O2 Delivery O2 Flow Rate FiO2 03/01/16 08:15 74 03/01/16 07:59 97.5 18 161/80 97 02/27/16 00:46 Room Air Intake and Output 02/29/16 02/29/16 03/01/16 15:00 23:00 07:00 Intake Total 400 ml 700 ml 400 ml Output Total 1000 ml 700 ml Balance 400 ml -300 ml -300 ml Exam Review of Systems: CONSTITUTIONAL: No fevers, chills. PULMONARY: No sob CARDIOVASCULAR: No chest pain/palpitations GASTROINTESTINAL: No nausea/vomiting. GENITOURINARY: No hematuria/dysuria. MUSCULOSKELETAL: No myagias/arthalgias. PSYCHIATRIC: The patient denies depression. NEUROLOGIC: No weakness Constitutional: other (sleeping) Psych: no complaints Head: normocephalic ENMT: mucosa pink and moist Neck: jvd (9 cm water), supple Respiratory: diminished breath sounds (at bases/B) Cardiovascular: regular rate and rhythm Gastrointestinal: non-tender, soft Musculoskeletal: muscle tone (normal) Extremities: edema (none) Neurological: lethargic Results Result Diagram: 03/01/1660403/01/16604 Results 24 hrs Laboratory Tests Test 03/01/16 06:05 Anion Gap 14 Basophils # 0.0 Basophils % 0.7 Blood Urea Nitrogen 29 H Calcium Level 8.7 Carbon Dioxide Level 31 Chloride Level 99 Creatinine 0.93 Eosinophils # 0.2 Eosinophils % 2.8 Glucose Level 130 Hematocrit 33.6 L Hemoglobin 11.3 L INR International Normalized Ratio 1.28 Lymphocytes # 1.4 Lymphocytes % 25.3 Mean Corpuscular Hemoglobin 31.6 Mean Corpuscular Hemoglobin Concent 33.5 Mean Corpuscular Volume 94.3 Mean Platelet Volume 8.2 Monocytes # 0.5 Monocytes % 8.4 Neutrophils # 3.6 Neutrophils % 62.8 Nucleated Red Blood Cells # 0.0 Nucleated Red Blood Cells % 0.0 Platelet Count 234 Potassium Level 4.1 Prothrombin Time 16.1 H Prothrombin Time Ratio 1.3 Red Blood Count 3.56 L Red Cell Distribution Width 14.2 Sodium Level 140 White Blood Count 5.7 Medications Medications Current Medications Hydralazine HCl (Apresoline) 10 mg Q4H PRN IV SBP>180 Last administered on 02/28 11:46; Admin Dose 10 MG; Start 02/26/16 at 18:00 Atorvastatin Calcium (Lipitor) 40 mg QHS PO Last administered on 02/29/16 20: 52; Admin Dose 40 MG; Start 02/27/16 at 21:00 Finasteride (Proscar) 5 mg DAILY PO Last administered on 03/01/16 08:16; Admin Dose 5 MG; Start 02/28/16 at 09:00 Tamsulosin HCl (Flomax) 0.4 mg QHS PO Last administered on 02/29/16 20:53; Admin Dose 0.4 MG; Start 02/28/16 at 09:00 Zolpidem Tartrate (Ambien) 5 mg QHS PRN PO INSOMNIA; Start 02/27/16 at 17:00 Amlodipine Besylate (Norvasc) 5 mg AM PO Last administered on 03/01/16 08:16; Admin Dose 5 MG; Start 03/01/16 at 09:00 Amlodipine Besylate (Norvasc) 2.5 mg HS PO Last administered on 02/29/16 20:53 ; Admin Dose 2.5 MG; Start 02/29/16 at 21:00 ROJELIO VILLAFANA Mar 01, 2016 10:48
--- NOTE | 2016-03-01 12:38 | CONS ---
Date/Time of Note Date/Time of Note DATE: 03/01/16 TIME: 12:37 Consultation Date/Type/Reason Admit Date/Time Feb 26, 2016 at 14:16 Type of Consultation: [facility] Referring Provider: LUAN SCHERER MD Exam/Review of Systems Vital Signs Vitals Vital Signs Date Time Temp Pulse Resp B/P Pulse Ox O2 Delivery O2 Flow Rate FiO2 03/01/16 12:31 80 03/01/16 12:19 98.0 18 137/68 98 02/27/16 00:46 Room Air Intake and Output 02/29/16 02/29/16 03/01/16 15:00 23:00 07:00 Intake Total 400 ml 700 ml 400 ml Output Total 1000 ml 700 ml Balance 400 ml -300 ml -300 ml Results Result Diagram: 03/01/16 0605 03/01/16 0605 Results 24 hrs Laboratory Tests Test 03/01/16 06:05 Anion Gap 14 Basophils # 0.0 Basophils % 0.7 Blood Urea Nitrogen 29 H Calcium Level 8.7 Carbon Dioxide Level 31 Chloride Level 99 Creatinine 0.93 Eosinophils # 0.2 Eosinophils % 2.8 Glucose Level 130 Hematocrit 33.6 L Hemoglobin 11.3 L INR International Normalized Ratio 1.28 Lymphocytes # 1.4 Lymphocytes % 25.3 Mean Corpuscular Hemoglobin 31.6 Mean Corpuscular Hemoglobin Concent 33.5 Mean Corpuscular Volume 94.3 Mean Platelet Volume 8.2 Monocytes # 0.5 Monocytes % 8.4 Neutrophils # 3.6 Neutrophils % 62.8 Nucleated Red Blood Cells # 0.0 Nucleated Red Blood Cells % 0.0 Platelet Count 234 Potassium Level 4.1 Prothrombin Time 16.1 H Prothrombin Time Ratio 1.3 Red Blood Count 3.56 L Red Cell Distribution Width 14.2 Sodium Level 140 White Blood Count 5.7 Medications Medications Current Medications Hydralazine HCl (Apresoline) 10 mg Q4H PRN IV SBP>180 Last administered on 02/28 11:46; Admin Dose 10 MG; Start 02/26/16 at 18:00 Atorvastatin Calcium (Lipitor) 40 mg QHS PO Last administered on 02/29/16 20: 52; Admin Dose 40 MG; Start 02/27/16 at 21:00 Finasteride (Proscar) 5 mg DAILY PO Last administered on 03/01/16 08:16; Admin Dose 5 MG; Start 02/28/16 at 09:00 Tamsulosin HCl (Flomax) 0.4 mg QHS PO Last administered on 02/29/16 20:53; Admin Dose 0.4 MG; Start 02/28/16 at 09:00 Zolpidem Tartrate (Ambien) 5 mg QHS PRN PO INSOMNIA; Start 02/27/16 at 17:00 Amlodipine Besylate (Norvasc) 5 mg AM PO Last administered on 03/01/16 08:16; Admin Dose 5 MG; Start 03/01/16 at 09:00 Amlodipine Besylate (Norvasc) 2.5 mg HS PO Last administered on 02/29/16 20:53 ; Admin Dose 2.5 MG; Start 02/29/16 at 21:00 STEPHEN RUSH MD Mar 01, 2016 12:38
--- NOTE | 2016-03-01 14:45 | PN ---
Date/Time of Note Date/Time of Note DATE: 03/01/16 TIME: 14:45 Assessment/Plan VTE Prophylaxis VTE Prophylaxis Intervention: other Lines/Catheters IV Catheter Type (from [facility]): Saline Lock Urinary Cath still in place: No Assessment/Plan Chief Complaint/Hosp Course 1. 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 Dr. Don, neurology consult is appreciated. Continue to monitor neuro status. continue PT and OT. 2. Atrial fibrillation with slow ventricular response. Patient was on diltiazem at home which is held. Dr. Tolentino is following in cardiology consultation. Continue to monitor rate and rhythm on telemetry floor. INR is 1.99. Discussed with Dr. Dey cardiology. Will resume Xarelto at the lower dose tomorrow if INR continues to trend down. 3. Coagulopathy, monitor PT and INR. the patient is on Xarelto at home. 4. Hypertension. Continue to monitor blood pressure. Allow for permissive hypertension in view of acute stroke. 5. Benign prostatic hypertrophy. Continue Flomax and finasteride. 6. Diastolic congestive heart failure with preserved ejection fraction per echo in November of last year. Continue to monitor intake and output. Problems: Subjective 24 Hr Interval Summary Free Text/Dictation Patient has no complaints Exam/Review of Systems Vital Signs Vitals Vital Signs Date Time Temp Pulse Resp B/P Pulse Ox O2 Delivery O2 Flow Rate FiO2 03/01/16 13:33 80 03/01/16 12:19 98.0 18 137/68 98 02/27/16 00:46 Room Air Intake and Output 02/29/16 02/29/16 03/01/16 15:00 23:00 07:00 Intake Total 400 ml 700 ml 400 ml Output Total 1000 ml 700 ml Balance 400 ml -300 ml -300 ml Exam Head: atraumatic, normocephalic Neck: supple Respiratory: clear to auscultation Cardiovascular: regular rate and rhythm Gastrointestinal: non-tender, soft Extremities: normal pulses Results Result Diagram: 03/01/16 0603/01/16 0605 Results 24 hrs Laboratory Tests Test 03/01/16 06:05 Anion Gap 14 Basophils # 0.0 Basophils % 0.7 Blood Urea Nitrogen 29 H Calcium Level 8.7 Carbon Dioxide Level 31 Chloride Level 99 Creatinine 0.93 Eosinophils # 0.2 Eosinophils % 2.8 Glucose Level 130 Hematocrit 33.6 L Hemoglobin 11.3 L INR International Normalized Ratio 1.28 Lymphocytes # 1.4 Lymphocytes % 25.3 Mean Corpuscular Hemoglobin 31.6 Mean Corpuscular Hemoglobin Concent 33.5 Mean Corpuscular Volume 94.3 Mean Platelet Volume 8.2 Monocytes # 0.5 Monocytes % 8.4 Neutrophils # 3.6 Neutrophils % 62.8 Nucleated Red Blood Cells # 0.0 Nucleated Red Blood Cells % 0.0 Platelet Count 234 Potassium Level 4.1 Prothrombin Time 16.1 H Prothrombin Time Ratio 1.3 Red Blood Count 3.56 L Red Cell Distribution Width 14.2 Sodium Level 140 White Blood Count 5.7 Medications Medications Current Medications Hydralazine HCl (Apresoline) 10 mg Q4H PRN IV SBP>180 Last administered on 02/28 11:46; Admin Dose 10 MG; Start 02/26/16 at 18:00 Atorvastatin Calcium (Lipitor) 40 mg QHS PO Last administered on 02/29/16 20: 52; Admin Dose 40 MG; Start 02/27/16 at 21:00 Finasteride (Proscar) 5 mg DAILY PO Last administered on 03/01/16 08:16; Admin Dose 5 MG; Start 02/28/16 at 09:00 Tamsulosin HCl (Flomax) 0.4 mg QHS PO Last administered on 02/29/16 20:53; Admin Dose 0.4 MG; Start 02/28/16 at 09:00 Zolpidem Tartrate (Ambien) 5 mg QHS PRN PO INSOMNIA; Start 02/27/16 at 17:00 Amlodipine Besylate (Norvasc) 5 mg AM PO Last administered on 03/01/16 08:16; Admin Dose 5 MG; Start 03/01/16 at 09:00 Amlodipine Besylate (Norvasc) 2.5 mg HS PO Last administered on 02/29/16 20:53 ; Admin Dose 2.5 MG; Start 02/29/16 at 21:00 FABIANA ALONZO Mar 01, 2016 14:45
[2016-03-01] MEDS: RIVAROXABAN 15 MG TABLET PO SCH (17:35)
[2016-03-01] MEDS: AMLODIPINE 2.5 MG TAB PO SCH (20:16)
[2016-03-01] MEDS: ATORVASTATIN 40 MG TAB PO SCH (20:16)
[2016-03-01] MEDS: TAMSULOSIN (SR) 0.4 MG CAP PO SCH (20:17)
[2016-03-02] VITALS (12 sets, daily range): BP systolic 110–169; BP diastolic 59–91; PULSE 57–89; RESP 18–20
[2016-03-02 07:13] LABS: INR 1.43; PROTIME 17.5 Sec (12.2-14.2); PT RATIO 1.4
[2016-03-02] MEDS: AMLODIPINE 5 MG TAB PO SCH (08:55)
[2016-03-02] MEDS: FINASTERIDE 5 MG TAB PO SCH (08:55)
--- NOTE | 2016-03-02 10:54 | PN ---
Date/Time of Note Date/Time of Note DATE: 03/02/16 TIME: 10:53 Assessment/Plan VTE Prophylaxis VTE Prophylaxis Intervention: other Lines/Catheters IV C[facility]ter Type (from [facility] Saline Lock Urinary Cath still in place: No Assessment/Plan Chief Complaint/Hosp Course 1. 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 Dr. Don, neurology consult is appreciated. Continue to monitor neuro status. continue PT and OT. 2. Atrial fibrillation with slow ventricular response. Patient was on diltiazem at home which is held. Dr. Tolentino is following in cardiology consultation. Continue to monitor rate and rhythm on telemetry floor. INR is 1.99. Discussed with Dr. Dey cardiology. Will resume Xarelto at the lower dose tomorrow if INR continues to trend down. 3. Coagulopathy, monitor PT and INR. the patient is on Xarelto at home. 4. Hypertension. Continue to monitor blood pressure. Allow for permissive hypertension in view of acute stroke. 5. Benign prostatic hypertrophy. Continue Flomax and finasteride. 6. Diastolic congestive heart failure with preserved ejection fraction per echo in November of last year. Continue to monitor intake and output. Problems: Subjective 24 Hr Interval Summary Free Text/Dictation Patient has no complaints Exam/Review of Systems Vital Signs Vitals Vital Signs Date Time Temp Pulse Resp B/P Pulse Ox O2 Delivery O2 Flow Rate FiO2 03/02/16 08:13 57 03/02/16 07:26 97.9 18 166/91 92 Intake and Output 03/01/16 03/01/16 03/02/16 15:00 23:00 07:00 Intake Total 700 ml Balance 700 ml Exam Constitutional: well developed Head: atraumatic, normocephalic Neck: supple Respiratory: diminished breath sounds Cardiovascular: regular rate and rhythm Gastrointestinal: non-tender, soft Extremities: normal pulses Results Result Diagram: 03/01/16 0605 03/01/16 0605 Results 24 hrs Laboratory Tests Test 03/02/16 05:25 INR International Normalized Ratio 1.43 Prothrombin Time 17.5 H Prothrombin Time Ratio 1.4 Medications Medications Current Medications Hydralazine HCl (Apresoline) 10 mg Q4H PRN IV SBP>180 Last administered on 02/28t 11:46; Admin Dose 10 MG; Start 02/26/16 at 18:00 Atorvastatin Calcium (Lipitor) 40 mg QHS PO Last administered on 03/01/16 20: 16; Admin Dose 40 MG; Start 02/27/16 at 21:00 Finasteride (Proscar) 5 mg DAILY PO Last administered on 03/02/16 08:55; Admin Dose 5 MG; Start 02/28/16 at 09:00 Tamsulosin HCl (Flomax) 0.4 mg QHS PO Last administered on 03/01/16 20:17; Admin Dose 0.4 MG; Start 02/28/16 at 09:00 Zolpidem Tartrate (Ambien) 5 mg QHS PRN PO INSOMNIA; Start 02/27/16 at 17:00 Amlodipine Besylate (Norvasc) 5 mg AM PO Last administered on 03/02/16 08:55; Admin Dose 5 MG; Start 03/01/16 at 09:00 Amlodipine Besylate (Norvasc) 2.5 mg HS PO Last administered on 03/01/16 20:16 ; Admin Dose 2.5 MG; Start 02/29/16 at 21:00 FABIANA ALONZO Mar 02, 2016 10:54
[2016-03-02] MEDS: RIVAROXABAN 15 MG TABLET PO SCH (17:05)
[2016-03-02] MEDS: AMLODIPINE 2.5 MG TAB PO SCH (21:28)
[2016-03-02] MEDS: TAMSULOSIN (SR) 0.4 MG CAP PO SCH (21:28)
[2016-03-02] MEDS: ATORVASTATIN 40 MG TAB PO SCH (21:28)
--- NOTE | 2016-03-02 22:06 | CONS ---
Date/Time of Note Date/Time of Note DATE: 03/02/16 TIME: 22:06 Consultation Date/Type/Reason Admit Date/Time Feb 26, 2016 at 14:16 [facility] Referring Provider: LUAN SCHERER MD Exam/Review of Systems Vital Signs Vitals Vital Signs Date Time Temp Pulse Resp B/P Pulse Ox O2 Delivery O2 Flow Rate FiO2 03/02/16 20:20 81 03/02/16 18:57 98.7 20 169/84 92 Intake and Output 03/01/16 03/01/16 03/02/16 15:00 23:00 07:00 Intake Total 700 ml Balance 700 ml Results Result Diagram: 03/01/16 0605 03/01/16 0605 Results 24 hrs Laboratory Tests Test 03/02/16 05:25 INR International Normalized Ratio 1.43 Prothrombin Time 17.5 H Prothrombin Time Ratio 1.4 Medications Medications Current Medications Hydralazine HCl (Apresoline) 10 mg Q4H PRN IV SBP>180 Last administered on 02/28 11:46; Admin Dose 10 MG; Start 02/26/16 at 18:00 Atorvastatin Calcium (Lipitor) 40 mg QHS PO Last administered on 03/02/16 21: 28; Admin Dose 40 MG; Start 02/27/16 at 21:00 Finasteride (Proscar) 5 mg DAILY PO Last administered on 03/02/16 08:55; Admin Dose 5 MG; Start 02/28/16 at 09:00 Tamsulosin HCl (Flomax) 0.4 mg QHS PO Last administered on 03/02/16 21:28; Admin Dose 0.4 MG; Start 02/28/16 at 09:00 Zolpidem Tartrate (Ambien) 5 mg QHS PRN PO INSOMNIA; Start 02/27/16 at 17:00 Amlodipine Besylate (Norvasc) 5 mg AM PO Last administered on 03/02/16 08:55; Admin Dose 5 MG; Start 03/01/16 at 09:00 Amlodipine Besylate (Norvasc) 2.5 mg HS PO Last administered on 03/02/16 21:28 ; Admin Dose 2.5 MG; Start 02/29/16 at 21:00 STEPHEN RUSH MD Mar 02, 2016 22:06
[2016-03-03] VITALS (13 sets, daily range): BP systolic 146–177; BP diastolic 67–92; PULSE 41–92; RESP 16–18
[2016-03-03 07:15] LABS: INR 1.6; PROTIME 19.2 Sec (12.2-14.2); PT RATIO 1.5
[2016-03-03] MEDS: AMLODIPINE 5 MG TAB PO SCH (07:39)
[2016-03-03] MEDS: FINASTERIDE 5 MG TAB PO SCH (07:39)
--- NOTE | 2016-03-03 11:57 | PN ---
Date/Time of Note Date/Time of Note DATE: 03/03/16 TIME: 11:57 Assessment/Plan VTE Prophylaxis VTE Prophylaxis Intervention: other Lines/Catheters IV [facility] Type [facility]from [facility] Saline Lock Urinary Cath still in place: No Assessment/Plan Chief Complaint/Hosp Course 1. 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 Dr. Don, neurology consult is appreciated. Continue to monitor neuro status. continue PT and OT. 2. Atrial fibrillation with slow ventricular response. Patient was on diltiazem at home which is held. Dr. Tolentino is following in cardiology consultation. Continue to monitor rate and rhythm on telemetry floor. INR is 1.99. Discussed with Dr. Dey cardiology. Will resume Xarelto at the lower dose tomorrow if INR continues to trend down. 3. Coagulopathy, monitor PT and INR. the patient is on Xarelto at home. 4. Hypertension. Continue to monitor blood pressure. Allow for permissive hypertension in view of acute stroke. 5. Benign prostatic hypertrophy. Continue Flomax and finasteride. 6. Diastolic congestive heart failure with preserved ejection fraction per echo in November of last year. Continue to monitor intake and output. Problems: Subjective 24 Hr Interval Summary Free Text/Dictation Patient has no complaints Exam/Review of Systems Vital Signs Vitals Vital Signs Date Time Temp Pulse Resp B/P Pulse Ox O2 Delivery O2 Flow Rate FiO2 03/03/16 11:29 97.9 78 18 158/68 96 Intake and Output 03/02/16 03/02/16 03/03/16 15:00 23:00 07:00 Intake Total 720 ml 750 ml Output Total 800 ml 550 ml Balance -80 ml 200 ml Exam Constitutional: well developed Head: atraumatic, normocephalic Neck: supple Respiratory: clear to auscultation Cardiovascular: regular rate and rhythm Gastrointestinal: non-tender, soft Extremities: normal pulses Results Result Diagram: 03/01/16 0603/01/16 06 Results 24 hrs Laboratory Tests Test 03/03/16 05:30 INR International Normalized Ratio 1.60 Prothrombin Time 19.2 H Prothrombin Time Ratio 1.5 Medications Medications Current Medications Hydralazine HCl (Apresoline) 10 mg Q4H PRN IV SBP>180 Last administered on 02/28t 11:46; Admin Dose 10 MG; Start 02/26/16 at 18:00 Atorvastatin Calcium (Lipitor) 40 mg QHS PO Last administered on 03/02/16 21: 28; Admin Dose 40 MG; Start 02/27/16 at 21:00 Finasteride (Proscar) 5 mg DAILY PO Last administered on 03/03/16 07:39; Admin Dose 5 MG; Start 02/28/16 at 09:00 Tamsulosin HCl (Flomax) 0.4 mg QHS PO Last administered on 03/02/16 21:28; Admin Dose 0.4 MG; Start 02/28/16 at 09:00 Zolpidem Tartrate (Ambien) 5 mg QHS PRN PO INSOMNIA; Start 02/27/16 at 17:00 Amlodipine Besylate (Norvasc) 5 mg AM PO Last administered on 03/03/16 07:39; Admin Dose 5 MG; Start 03/01/16 at 09:00 Amlodipine Besylate (Norvasc) 2.5 mg HS PO Last administered on 03/02/16 21:28 ; Admin Dose 2.5 MG; Start 02/29/16 at 21:00 FABIANA ALONZO Mar 03, 2016 11:57
[2016-03-03] MEDS: RIVAROXABAN 15 MG TABLET PO SCH (17:14)
[2016-03-03] MEDS: ATORVASTATIN 40 MG TAB PO SCH (21:29)
[2016-03-03] MEDS: AMLODIPINE 2.5 MG TAB PO SCH (21:29)
[2016-03-03] MEDS: TAMSULOSIN (SR) 0.4 MG CAP PO SCH (21:29)
--- NOTE | 2016-03-03 22:28 | CONS ---
Date/Time of Note Date/Time of Note DATE: 03/03/16 TIME: 22:28 Consultation Date/Type/Reason Admit Date/Time Feb 26, 2016 at 14:16 [facility] Referring Provider: LUAN SCHERER MD Exam/Review of Systems Vital Signs Vitals Vital Signs Date Time Temp Pulse Resp B/P Pulse Ox O2 Delivery O2 Flow Rate FiO2 03/03/16 20:00 83 03/03/16 20:00 98.4 18 146/69 91 Intake and Output 03/02/16 03/02/16 03/03/16 15:00 23:00 07:00 Intake Total 720 ml 750 ml Output Total 800 ml 550 ml Balance -80 ml 200 ml Results Result Diagram: 03/01/16 0605 03/01/16 0605 Results 24 hrs Laboratory Tests Test 03/03/16 05:30 INR International Normalized Ratio 1.60 Prothrombin Time 19.2 H Prothrombin Time Ratio 1.5 Medications Medications Current Medications Hydralazine HCl (Apresoline) 10 mg Q4H PRN IV SBP>180 Last administered on 02/28 11:46; Admin Dose 10 MG; Start 02/26/16 at 18:00 Atorvastatin Calcium (Lipitor) 40 mg QHS PO Last administered on 03/03/16 21: 29; Admin Dose 40 MG; Start 02/27/16 at 21:00 Finasteride (Proscar) 5 mg DAILY PO Last administered on 03/03/16 07:39; Admin Dose 5 MG; Start 02/28/16 at 09:00 Tamsulosin HCl (Flomax) 0.4 mg QHS PO Last administered on 03/03/16 21:29; Admin Dose 0.4 MG; Start 02/28/16 at 09:00 Zolpidem Tartrate (Ambien) 5 mg QHS PRN PO INSOMNIA; Start 02/27/16 at 17:00 Amlodipine Besylate (Norvasc) 5 mg AM PO Last administered on 03/03/16 07:39; Admin Dose 5 MG; Start 03/01/16 at 09:00 Amlodipine Besylate (Norvasc) 2.5 mg HS PO Last administered on 03/03/16 21:29 ; Admin Dose 2.5 MG; Start 02/29/16 at 21:00 STEPHEN RUSH MD Mar 03, 2016 22:28
[2016-03-04] VITALS (16 sets, daily range): BP systolic 138–199; BP diastolic 65–104; PULSE 62–85; RESP 17–20
[2016-03-04] MEDS: hydrALAzine 20 MG INJ IV PRN ×2 (00:34→11:28)
[2016-03-04 08:26] LABS: INR 1.53; PROTIME 18.5 Sec (12.2-14.2); PT RATIO 1.4
[2016-03-04] MEDS: FINASTERIDE 5 MG TAB PO SCH (08:42)
[2016-03-04] MEDS: AMLODIPINE 5 MG TAB PO SCH (08:42)
[2016-03-04] MEDS: RIVAROXABAN 15 MG TABLET PO SCH (18:18)
--- NOTE | 2016-03-04 18:29 | CONS ---
Date/Time of Note Date/Time of Note DATE: 03/04/16 TIME: 18:25 Assessment/Plan Assessment/Plan Chief Complaint/Hosp Course IMPRESSION: 1. Atrial fibrillation with slow ventricular response-now having rapid AF? SSS/ [id number] TSH this admit 2. Abnormal electrocardiogram, assess for acute coronary syndrome. 3. Congestive heart failure with chest x-ray would be diastolic, acute on chronic, by most recent echo, ejection fraction of 50%, November 2015. 4. Hypertension.-now significantly uncontrolled 5. Acute cerebrovascular accident by MRI, frontoparietal. 6. Dementia. 7. History of coronary artery disease. 8. Anemia. 9. Coagulopathy with supratherapeutic INR-now improved 10. Dyslipidemia Recc -Tele -serial ecg's -Increase norvasc ansd start ACEI to improve BP control now -Will start low dose BB for uncontrolled AF but if becomes slow may require PPM for definite treatment of ? SSS/tachy-jennifer -Continue statin -Continue xarelto at current dose as presented with sig coagulopathy at higher dose -Follow MS closely/ongoing neuro eval Problems: Consultation Date/Type/Reason Admit Date/Time Feb 26, 2016 at 14:16 Initial Consult Date 02/28/2016 Type of Consultation: Cardiology Reason for Consultation AF Referring Provider: LUAN SCHERER MD Exam/Review of Systems Vital Signs Vitals Vital Signs Date Time Temp Pulse Resp B/P Pulse Ox O2 Delivery O2 Flow Rate FiO2 03/04/16 16:33 85 03/04/16 15:21 97.8 20 138/74 96 Intake and Output 03/03/16 03/03/16 03/04/16 15:00 23:00 07:00 Intake Total 870 ml 800 ml Output Total 700 ml 750 ml Balance 170 ml 50 ml Exam Review of Systems: CONSTITUTIONAL: No fevers, chills. PULMONARY: No sob CARDIOVASCULAR: No chest pain/palpitations GASTROINTESTINAL: No nausea/vomiting. GENITOURINARY: No hematuria/dysuria. MUSCULOSKELETAL: No myagias/arthalgias. PSYCHIATRIC: The patient denies depression. NEUROLOGIC: No weakness Constitutional: alert, oriented Psych: no complaints Head: normocephalic ENMT: mucosa pink and moist Neck: jvd (8-9 cm water), supple Respiratory: diminished breath sounds (at bases/B) Cardiovascular: irregular rhythm Gastrointestinal: non-tender, soft Musculoskeletal: muscle tone (normal) Extremities: edema (none) Neurological: other (No focal deficits) Results Result Diagram: 03/01/1660403/01/16604 Results 24 hrs Laboratory Tests Test 03/04/16 06:45 INR International Normalized Ratio 1.53 Prothrombin Time 18.5 H Prothrombin Time Ratio 1.4 Medications Medications Current Medications Hydralazine HCl (Apresoline) 10 mg Q4H PRN IV SBP>180 Last administered on 03/04 11:28; Admin Dose 10 MG; Start 02/26/16 at 18:00 Atorvastatin Calcium (Lipitor) 40 mg QHS PO Last administered on 03/03/16 21: 29; Admin Dose 40 MG; Start 02/27/16 at 21:00 Finasteride (Proscar) 5 mg DAILY PO Last administered on 03/04/16 08:42; Admin Dose 5 MG; Start 02/28/16 at 09:00 Tamsulosin HCl (Flomax) 0.4 mg QHS PO Last administered on 03/03/16 21:29; Admin Dose 0.4 MG; Start 02/28/16 at 09:00 Zolpidem Tartrate (Ambien) 5 mg QHS PRN PO INSOMNIA; Start 02/27/16 at 17:00 Amlodipine Besylate (Norvasc) 5 mg AM PO Last administered on 03/04/16 08:42; Admin Dose 5 MG; Start 03/01/16 at 09:00 Amlodipine Besylate (Norvasc) 2.5 mg HS PO Last administered on 03/03/16 21:29 ; Admin Dose 2.5 MG; Start 02/29/16 at 21:00 ROJELIO VILLAFANA Mar 04, 2016 18:29
--- NOTE | 2016-03-04 19:20 | PN ---
Date/Time of Note Date/Time of Note DATE: 03/04/16 TIME: 19:16 Assessment/Plan VTE Prophylaxis VTE Prophylaxis Intervention: SCD's Lines/Catheters IV [facility] [place] [facility] Urinary Cath still in place: No Assessment/Plan Chief Complaint/Hosp Course ASSESSMENT AND PLAN: 1. Acute ischemic stroke. Dr. oDn, neurology consult is appreciated. Continue to monitor neuro status. continue PT and OT. 2. Atrial fibrillation with slow ventricular response. Dr. Dey is following in cardiology consultation. Continue Xarelto. 3. Coagulopathy on admission, monitor PT and INR. the patient is on Xarelto at home. 4. Hypertension. Blood pressure medication per cardiology. 5. Benign prostatic hypertrophy. Continue Flomax and finasteride. 6. Diastolic congestive heart failure with preserved ejection fraction per echo in November of last year. Continue to monitor intake and output. Further recommendations based on clinical course. Plan of care discussed with Dr. Villarreal. Problems: Subjective 24 Hr Interval Summary Free Text/Dictation Patient was no neurological deficit, atrial fibrillation with slow ventricular response at times, heart rate goes to 38, however patient has elevated blood pressure. Exam/Review of Systems Vital Signs Vitals Vital Signs Date Time Temp Pulse Resp B/P Pulse Ox O2 Delivery O2 Flow Rate FiO2 03/04/16 16:33 85 03/04/16 15:21 97.8 20 138/74 96 Intake and Output 03/03/16 03/03/16 03/04/16 15:00 23:00 07:00 Intake Total 870 ml 800 ml Output Total 700 ml 750 ml Balance 170 ml 50 ml Exam GENERAL: Well-developed, well-nourished male in no acute distress. HEENT: Head is atraumatic, normocephalic. NECK: Supple. No cervical lymphadenopathy, no thyromegaly. CHEST: Lungs clear bilaterally. There are no rhonchi, wheezes, or rales chills noted. CARDIOVASCULAR: Irregularly irregular rhythm. Normal S2, variable S1. No murmurs, gallops, clicks, rubs noted. ABDOMEN: Round, soft, nondistended, nontender. Bowel sounds present. SKIN: There is no rash, petechiae noted. NEUROLOGIC: The patient is awake, alert, and oriented x3. Results Result Diagram: 03/01/16 0605 03/01/16 0605 Results 24 hrs Laboratory Tests Test 03/04/16 06:45 INR International Normalized Ratio 1.53 Prothrombin Time 18.5 H Prothrombin Time Ratio 1.4 Medications Medications Current Medications Hydralazine HCl (Apresoline) 10 mg Q4H PRN IV SBP>180 Last administered on 03/04 11:28; Admin Dose 10 MG; Start 02/26/16 at 18:00 Atorvastatin Calcium (Lipitor) 40 mg QHS PO Last administered on 03/03/16 21: 29; Admin Dose 40 MG; Start 02/27/16 at 21:00 Finasteride (Proscar) 5 mg DAILY PO Last administered on 03/04/16 08:42; Admin Dose 5 MG; Start 02/28/16 at 09:00 Tamsulosin HCl (Flomax) 0.4 mg QHS PO Last administered on 03/03/16 21:29; Admin Dose 0.4 MG; Start 02/28/16 at 09:00 Zolpidem Tartrate (Ambien) 5 mg QHS PRN PO INSOMNIA; Start 02/27/16 at 17:00 Amlodipine Besylate (Norvasc) 5 mg AM PO Last administered on 03/04/16 08:42; Admin Dose 5 MG; Start 03/01/16 at 09:00 Amlodipine Besylate (Norvasc) 5 mg HS PO ; Start 03/04/16 at 21:00 Benazepril HCl (Lotensin) 10 mg BID PO ; Start 03/04/16 at 21:00 Metoprolol Tartrate (Lopressor) 25 mg BID PO ; Start 03/04/16 at 21:00 CLOE ABDULLAHI Mar 04, 2016 19:20
[2016-03-04] MEDS ORDERED: AMLODIPINE 2.5 MG TAB PO SCH (21:00)
[2016-03-04] MEDS: ATORVASTATIN 40 MG TAB PO SCH (21:09)
[2016-03-04] MEDS: TAMSULOSIN (SR) 0.4 MG CAP PO SCH (21:09)
[2016-03-04] MEDS: METOPROLOL 25 MG TAB PO SCH (21:10)
[2016-03-04] MEDS: BENAZEPRIL 10 MG TAB PO SCH (21:10)
--- NOTE | 2016-03-04 23:16 | CONS ---
Date/Time of Note Date/Time of Note DATE: 03/04/16 TIME: 23:15 Consultation Date/Type/Reason Admit Date/Time Feb 26, 2016 at 14:16 Referring Provider: LUAN SCHERER MD Exam/Review of Systems Vital Signs Vitals Vital Signs Date Time Temp Pulse Resp B/P Pulse Ox O2 Delivery O2 Flow Rate FiO2 03/04/16 20:11 69 03/04/16 20:00 98.0 18 167/80 95 Intake and Output 03/03/16 03/03/16 03/04/16 15:00 23:00 07:00 Intake Total 870 ml 800 ml Output Total 700 ml 750 ml Balance 170 ml 50 ml Results Result Diagram: 03/01/16 0605 03/01/16 06 Results 24 hrs Laboratory Tests Test 03/04/16 06:45 INR International Normalized Ratio 1.53 Prothrombin Time 18.5 H Prothrombin Time Ratio 1.4 Medications Medications Current Medications Hydralazine HCl (Apresoline) 10 mg Q4H PRN IV SBP>180 Last administered on 03/04 11:28; Admin Dose 10 MG; Start 02/26/16 at 18:00 Atorvastatin Calcium (Lipitor) 40 mg QHS PO Last administered on 03/04/16 21: 09; Admin Dose 40 MG; Start 02/27/16 at 21:00 Finasteride (Proscar) 5 mg DAILY PO Last administered on 03/04/16 08:42; Admin Dose 5 MG; Start 02/28/16 at 09:00 Tamsulosin HCl (Flomax) 0.4 mg QHS PO Last administered on 03/04/16 21:09; Admin Dose 0.4 MG; Start 02/28/16 at 09:00 Zolpidem Tartrate (Ambien) 5 mg QHS PRN PO INSOMNIA; Start 02/27/16 at 17:00 Amlodipine Besylate (Norvasc) 5 mg AM PO Last administered on 03/04/16 08:42; Admin Dose 5 MG; Start 03/01/16 at 09:00 Amlodipine Besylate (Norvasc) 5 mg HS PO Last administered on 03/04/16 21:10; Admin Dose 5 MG; Start 03/04/16 at 21:00 Benazepril HCl (Lotensin) 10 mg BID PO Last administered on 03/04/16 21:10; Admin Dose 10 MG; Start 03/04/16 at 21:00 Metoprolol Tartrate (Lopressor) 25 mg BID PO Last administered on 03/04/16 21: 10; Admin Dose 25 MG; Start 03/04/16 at 21:00 STEPHEN RUSH MD Mar 04, 2016 23:16
[2016-03-05] VITALS (12 sets, daily range): BP systolic 122–170; BP diastolic 36–83; PULSE 40–66; RESP 18–20
[2016-03-05] MEDS: METOPROLOL 25 MG TAB PO SCH (09:00)
[2016-03-05] MEDS: FINASTERIDE 5 MG TAB PO SCH (09:48)
[2016-03-05] MEDS: BENAZEPRIL 10 MG TAB PO SCH (09:48)
[2016-03-05] MEDS: AMLODIPINE 5 MG TAB PO SCH (09:49)
--- NOTE | 2016-03-05 16:42 | CONS ---
Date/Time of Note Date/Time of Note DATE: 03/05/16 TIME: 16:39 Assessment/Plan Assessment/Plan Chief Complaint/Hosp Course 1. Acute ischemic stroke. Dr. Don, neurology consult is appreciated. Continue to monitor neuro status. continue PT and OT. 2. Atrial fibrillation with slow ventricular response. Dr. Dey is following in cardiology consultation. Continue Xarelto. 3. Coagulopathy on admission, monitor PT and INR. the patient is on Xarelto at home. 4. Hypertension. Blood pressure medication per cardiology. 5. Benign prostatic hypertrophy. Continue Flomax and finasteride. 6. Diastolic congestive heart failure with preserved ejection fraction per echo in November of last year. Continue to monitor intake and output. Problems: Consultation Date/Type/Reason Admit Date/Time Feb 26, 2016 at 14:16 Reason for Consultation anemia Referring Provider: LUAN SCHERER MD 24 HR Interval Summary Free Text/Dictation all noted d/w pt no new events count stable no bleeding Exam/Review of Systems Vital Signs Vitals Vital Signs Date Time Temp Pulse Resp B/P Pulse Ox O2 Delivery O2 Flow Rate FiO2 03/05/16 16:09 66 03/05/16 15:13 98.0 20 155/72 94 Intake and Output 03/04/16 03/04/16 03/05/16 15:00 23:00 07:00 Intake Total 720 ml 80 ml Balance 720 ml 80 ml Exam GENERAL: Well-developed, well-nourished male in no acute distress. HEENT: Head is atraumatic, normocephalic. NECK: Supple. No cervical lymphadenopathy, no thyromegaly. CHEST: Lungs clear bilaterally. There are no rhonchi, wheezes, or rales chills noted. CARDIOVASCULAR: Irregularly irregular rhythm. Normal S2, variable S1. No murmurs, gallops, clicks, rubs noted. ABDOMEN: Round, soft, nondistended, nontender. Bowel sounds present. SKIN: There is no rash, petechiae noted. NEUROLOGIC: The patient is awake, alert, and oriented x3. Results Result Diagram: 03/01/1605 03/01/16 06 Medications Medications Current Medications Hydralazine HCl (Apresoline) 10 mg Q4H PRN IV SBP>180 Last administered on 03/04 11:28; Admin Dose 10 MG; Start 02/26/16 at 18:00 Atorvastatin Calcium (Lipitor) 40 mg QHS PO Last administered on 03/04/16 21: 09; Admin Dose 40 MG; Start 02/27/16 at 21:00 Finasteride (Proscar) 5 mg DAILY PO Last administered on 03/05/16 09:48; Admin Dose 5 MG; Start 02/28/16 at 09:00 Tamsulosin HCl (Flomax) 0.4 mg QHS PO Last administered on 03/04/16 21:09; Admin Dose 0.4 MG; Start 02/28/16 at 09:00 Zolpidem Tartrate (Ambien) 5 mg QHS PRN PO INSOMNIA; Start 02/27/16 at 17:00 Amlodipine Besylate (Norvasc) 5 mg AM PO Last administered on 03/05/16 09:49; Admin Dose 5 MG; Start 03/01/16 at 09:00 Amlodipine Besylate (Norvasc) 5 mg HS PO Last administered on 03/04/16 21:10; Admin Dose 5 MG; Start 03/04/16 at 21:00 Benazepril HCl (Lotensin) 10 mg BID PO Last administered on 03/05/16 09:48; Admin Dose 10 MG; Start 03/04/16 at 21:00 Metoprolol Tartrate (Lopressor) 25 mg BID PO Last administered on 03/04/16 21: 10; Admin Dose 25 MG; Start 03/04/16 at 21:00 STEPHEN RUSH MD Mar 05, 2016 16:42
[2016-03-05] MEDS ORDERED: METO-448 PO (17:21)
[2016-03-05] MEDS ORDERED: ATOR40TA68 PO (17:21)
[2016-03-05] MEDS ORDERED: AMLO2.5T78 PO (17:21)
[2016-03-05] MEDS ORDERED: AMLO-145 PO (17:21)
--- NOTE | 2016-03-05 17:35 | CONS ---
Date/Time of Note Date/Time of Note DATE: 03/05/16 TIME: 17:33 Assessment/Plan Assessment/Plan Chief Complaint/Hosp Course IMPRESSION: 1. Atrial fibrillation with slow ventricular response-now having rapid AF? SSS/ [id number] TSH this admit 2. Abnormal electrocardiogram, assess for acute coronary syndrome. 3. Congestive heart failure with chest x-ray would be diastolic, acute on chronic, by most recent echo, ejection fraction of 50%, November 2015. 4. Hypertension.-now significantly uncontrolled 5. Acute cerebrovascular accident by MRI, frontoparietal. 6. Dementia. 7. History of coronary artery disease. 8. Anemia. 9. Coagulopathy with supratherapeutic INR-now improved 10. Dyslipidemia Recc -Tele -serial ecg's -Continue norvasc/ACEI and BB with overall improved SBP -Follow HR closely -Continue statin -Continue xarelto at current dose as presented with sig coagulopathy at higher dose -Follow MS closely/ongoing neuro eval Problems: Consultation Date/Type/Reason Admit Date/Time Feb 26, 2016 at 14:16 Initial Consult Date 02/28/2016 Type of Consultation: Cardiology Reason for Consultation AF Referring Provider: LUAN SCHERER MD Exam/Review of Systems Vital Signs Vitals Vital Signs Date Time Temp Pulse Resp B/P Pulse Ox O2 Delivery O2 Flow Rate FiO2 03/05/16 16:09 66 03/05/16 15:13 98.0 20 155/72 94 Intake and Output 03/04/16 03/04/16 03/05/16 15:00 23:00 07:00 Intake Total 720 ml 80 ml Balance 720 ml 80 ml Exam Review of Systems: CONSTITUTIONAL: No fevers, chills. PULMONARY: No sob CARDIOVASCULAR: No chest pain/palpitations GASTROINTESTINAL: No nausea/vomiting. GENITOURINARY: No hematuria/dysuria. MUSCULOSKELETAL: No myagias/arthalgias. PSYCHIATRIC: The patient denies depression. NEUROLOGIC: aphasia Constitutional: alert Psych: no complaints Head: normocephalic ENMT: mucosa pink and moist Neck: jvd (8-9 cm water), supple Respiratory: diminished breath sounds (at bases/B) Cardiovascular: regular rate and rhythm Gastrointestinal: non-tender, soft Musculoskeletal: muscle tone (normal) Extremities: edema (none) Neurological: other (No focal deficits) Results Result Diagram: 03/01/1660403/01/16604 Medications Medications Current Medications Hydralazine HCl (Apresoline) 10 mg Q4H PRN IV SBP>180 Last administered on 03/04 11:28; Admin Dose 10 MG; Start 02/26/16 at 18:00 Atorvastatin Calcium (Lipitor) 40 mg QHS PO Last administered on 03/04/16 21: 09; Admin Dose 40 MG; Start 02/27/16 at 21:00 Finasteride (Proscar) 5 mg DAILY PO Last administered on 03/05/16 09:48; Admin Dose 5 MG; Start 02/28/16 at 09:00 Tamsulosin HCl (Flomax) 0.4 mg QHS PO Last administered on 03/04/16 21:09; Admin Dose 0.4 MG; Start 02/28/16 at 09:00 Zolpidem Tartrate (Ambien) 5 mg QHS PRN PO INSOMNIA; Start 02/27/16 at 17:00 Amlodipine Besylate (Norvasc) 5 mg AM PO Last administered on 03/05/16 09:49; Admin Dose 5 MG; Start 03/01/16 at 09:00 Amlodipine Besylate (Norvasc) 5 mg HS PO Last administered on 03/04/16 21:10; Admin Dose 5 MG; Start 03/04/16 at 21:00 Benazepril HCl (Lotensin) 10 mg BID PO Last administered on 03/05/16 09:48; Admin Dose 10 MG; Start 03/04/16 at 21:00 Metoprolol Tartrate (Lopressor) 25 mg BID PO Last administered on 03/04/16 21: 10; Admin Dose 25 MG; Start 03/04/16 at 21:00 ROJELIO VILLAFANA Mar 05, 2016 17:35
[2016-03-05] MEDS: RIVAROXABAN 15 MG TABLET PO SCH (18:34)
== END 2016-03-05 19:45 | disposition home health service (06) | DRG 64 ==
LOC: E/R 11:10 → TEL 14:16
PROVIDERS: ADMIT Internal Medicine; ATTEND Internal Medicine
DX: I63.9 Cerebral infarction, unspecified (principal); I50.33 Acute on chronic diastolic (congestive) heart failure; I48.91 Unspecified atrial fibrillation; F03.90 Unspecified dementia, unspecified severity, without behavioral disturbance, psychotic disturbance, mood disturbance, and anxiety; Z79.02 Long term (current) use of antithrombotics/antiplatelets; Z86.73 Personal history of transient ischemic attack (TIA), and cerebral infarction without residual deficits; E78.5 Hyperlipidemia, unspecified; I11.0 Hypertensive heart disease with heart failure; D64.9 Anemia, unspecified; I49.8 Other specified cardiac arrhythmias; N40.0 Benign prostatic hyperplasia without lower urinary tract symptoms
CPT/HCPCS: 36415; 70450; 70551; 71010; 80048; 80053; 80061; 82306; 82378; 82550; 82553; 82607; 82668; 82728; 82746; 82962; 83036; 83540; 83615; 83735; 84153; 84154; 84443; 84484; 84560; 85025; 85045; 85610; 85651; 85730; 92526; 92610; 93005; 93306; 93880; 93965; 96374; 97110; 97116; 97163; 97166; 97530; 97535; J1940; J0360

== ENCOUNTER 2017-04-17 11:12 | Inpatient (IN) | END 2017-04-29 20:00 | disposition short-term general hospital (02) | DRG 207 ==